=== PATIENT | female | born 1945 | race Caucasian/White ===

== ENCOUNTER → 2016-08-29 | Outpatient (REF) | payer BC ==
[2016-08-29 11:45] LABS: BASO # 0.1 K/mm3 (0.0-0.2); BASO % 0.6 % (0.0-1.0); EOS # 0.4 K/mm3 (0.0-0.50); EOS % 4.5 % (0.0-3.0); LARGE UNSTAINED CELL # 0.2 K/mm3 (0.0-0.4); LYMPH # 2.3 K/mm3 (1.5-4.5); LYMPH % 25.5 % (24.0-44.0); MEAN CORPUSCULAR HEMOGLOBIN 30.9 pg (27.0-33.0); MEAN CORPUSCULAR HGB CONC 33.2 g/dl (32.0-36.5); MEAN CORPUSCULAR VOLUME 93.1 fl (80.0-96.0); MONO # 0.5 K/mm3 (0.0-0.8); MONO % 5.4 % (0.0-5.0); NEUTROPHILS # 5.5 K/mm3 (1.8-7.7); NEUTROPHILS % 61.9 % (36.0-66.0); PLATELET COUNT, AUTOMATED 268 k/mm3 (150-450); RED CELL DISTRIBUTION WIDTH 12.3 % (11.5-14.5); WHITE BLOOD COUNT 8.8 K/mm3 (4.0-10.0)
[2016-08-29 12:22] LABS: ALBUMIN 4.3 GM/DL (3.2-5.2); ALBUMIN/GLOBULIN RATIO 1.54 (1.00-1.93); ALKALINE PHOSPHATASE 64 U/L (45-117); ALT/SGPT 46 U/L (12-78); ANION GAP 10 MEQ/L (8-16); AST/SGOT 25 U/L (15-37); BILIRUBIN,TOTAL 0.7 MG/DL (0.2-1.0); BLOOD UREA NITROGEN 15 MG/DL (7-18); CALCIUM LEVEL 9.4 MG/DL (8.8-10.2); CARBON DIOXIDE LEVEL 29 MEQ/L (21-32); CHLORIDE LEVEL 105 MEQ/L (98-107); CHOLESTEROL LEVEL 162 MG/DL (<200); CREATININE FOR GFR 0.83 MG/DL (0.55-1.02); FREE T4 0.94 NG/DL (0.76-1.46); GLOMERULAR FILTRATION RATE > 60.0 (>45); GLUCOSE, FASTING 161 MG/DL (80-110); POTASSIUM SERUM 4.3 MEQ/L (3.5-5.1); SODIUM LEVEL 144 MEQ/L (136-145); TOTAL PROTEIN 7.1 GM/DL (6.4-8.2); TRIGLYCERIDES LEVEL 138 MG/DL (<150)
== END | disposition home or self-care (01) ==
LOC: M SFHCPLAZ 07:56
PROVIDERS: ATTEND Family Medicine
DX: E78.2 Mixed hyperlipidemia (principal); E11.9 Type 2 diabetes mellitus without complications; E55.9 Vitamin D deficiency, unspecified

== ENCOUNTER → 2017-02-03 | Outpatient (REF) | payer BC ==
[2017-02-03 11:33] LABS: CHOLESTEROL LEVEL 148 MG/DL (<200); TRIGLYCERIDES LEVEL 124 MG/DL (<150)
== END ==
LOC: M SFHCPLAZ 07:59
PROVIDERS: ATTEND Family Medicine
DX: E78.2 Mixed hyperlipidemia (principal); E11.9 Type 2 diabetes mellitus without complications

== ENCOUNTER → 2017-06-10 | Outpatient (CLI) | payer BC ==
--- NOTE | 2017-06-10 14:23 | REP ---
BILATERAL MAMMOGRAM: Family history of breast cancer in maternal aunt. MLO and CC views of both breasts are performed and compared to the prior study of 04/29/2016 as well as other prior exams. Mild scattered fibroglandular tissue is unchanged. However, there do appear to be new tiny calcifications in the lower inner right breast near the nipple. Recommend magnification views to further evaluate. IMPRESSION: BI-RADS/ACR category 0 mammogram, incomplete. Additional imaging and/or prior mammograms for comparison. There appear to be increasing tiny clustered microcalcifications in the lower inner right breast near the nipple. Recommend magnification views to further evaluate. ACR 0 incomplete. This mammogram was interpreted with the aid of an FDA-approved computer-aided detection system. A. Negative x-ray reports should not delay biopsy if a dominant or clinically suspicious mass is present. B. Four to eight percent of cancers are not identified by x-ray. C. Adenosis and dense breasts may obscure an underlying neoplasm. The patient states that she/he has not had a clinical breast exam in over a year. The patient letter being requested is M0. Signed by Virgilio Murphy MD 06/11/2017 04:26 P
== END ==
LOC: M WHC 12:53
PROVIDERS: ATTEND Family Medicine
DX: Z12.31 Encounter for screening mammogram for malignant neoplasm of breast (principal)

== ENCOUNTER → 2017-06-15 | Outpatient (REF) | payer BC ==
[2017-06-15 12:27] LABS: BASO # 0.1 10^3/uL (0.0-0.2); BASO % 0.7 % (0.0-1.0); EOS # 0.3 10^3/uL (0.0-0.50); IMMATURE GRANULOCYTE % 0.2 % (0-0); LYMPH # 2.2 10^3/uL (1.5-4.5); LYMPH % 27.3 % (24.0-44.0); MEAN CORPUSCULAR HEMOGLOBIN 31.1 pg (27.0-33.0); MEAN CORPUSCULAR HGB CONC 33.6 g/dl (32.0-36.5); MEAN CORPUSCULAR VOLUME 92.5 fl (80.0-96.0); MONO # 0.5 10^3/uL (0.0-0.8); MONO % 6.7 % (0.0-5.0); NEUTROPHILS # 4.9 10^3/uL (1.8-7.7); NEUTROPHILS % 61.1 % (36.0-66.0); PLATELET COUNT, AUTOMATED 289 10^3/uL (150-450); RED CELL DISTRIBUTION WIDTH 12.2 % (11.5-14.5)
[2017-06-15 13:16] LABS: ALBUMIN 4.2 GM/DL (3.2-5.2); ALKALINE PHOSPHATASE 67 U/L (45-117); ALT/SGPT 47 U/L (12-78); ANION GAP 7 MEQ/L (8-16); AST/SGOT 23 U/L (7-37); BILIRUBIN,TOTAL 0.4 MG/DL (0.2-1.0); BLOOD UREA NITROGEN 13 MG/DL (7-18); CALCIUM LEVEL 9.4 MG/DL (8.8-10.2); CARBON DIOXIDE LEVEL 30 MEQ/L (21-32); CHLORIDE LEVEL 104 MEQ/L (98-107); CREATININE FOR GFR 0.75 MG/DL (0.55-1.02); FREE T4 0.98 NG/DL (0.76-1.46); GLOMERULAR FILTRATION RATE > 60.0 (>39); GLUCOSE, FASTING 140 MG/DL (83-110); POTASSIUM SERUM 4.7 MEQ/L (3.5-5.1); SODIUM LEVEL 141 MEQ/L (136-145)
== END ==
LOC: M SFHCPLAZ 08:22
PROVIDERS: ATTEND Family Medicine
DX: E55.9 Vitamin D deficiency, unspecified (principal); I10 Essential (primary) hypertension; E78.2 Mixed hyperlipidemia; E11.9 Type 2 diabetes mellitus without complications

== ENCOUNTER → 2017-06-23 | Outpatient (CLI) | payer BC ==
--- NOTE | 2017-06-23 13:09 | REP ---
Digital diagnostic unilateral right breast mammography with CAD: History: Screening mammography from June 10, 2017 was BIRADS category 0 due to a grouping of microcalcifications in the lower inner quadrant near the nipple right breast. Diagnostic imaging was recommended. Comparison is also made with prior mammography from July 02, 2015 and April 29, 2016. Mammographic findings: Magnified focal spot compression CC, ML, and MLO views of the right breast are obtained. These confirm the presence of a grouping of coarse heterogeneous microcalcifications in the subareolar zone inferior and medial quadrant right breast. These occupy an area spanning only 3 mm. They are increasing in number. There are scattered non-grouped calcifications elsewhere. No spiculation or soft tissue density is seen. No worrisome skin change is appreciated. Impression: BIRADS category 4 suspicious right breast imaging. Tight grouping of coarse heterogeneous microcalcifications in the subareolar zone right breast inferiorly and medially. Recommend stereotactic needle biopsy. BI-RADS/ACR category 4 mammogram. Suspicious abnormality - biopsy should be considered. Usually requires biopsy. This mammogram was interpreted with the aid of an FDA-approved computer-aided detection system. The patient states that she has not had a clinical breast exam in over a year. The patient letter being requested is m4. Signed by Marcellus Birch MD 06/23/2017 04:16 P
== END ==
LOC: M RAD 11:52
PROVIDERS: ATTEND Family Medicine
DX: R92.1 Mammographic calcification found on diagnostic imaging of breast (principal)

== ENCOUNTER → 2017-07-13 | Outpatient (CLI) | payer BC ==
[~2017-07-13] MED LIST: LIDOCAINE 1% MDV 20ML VIAL As Ordered
== END ==
LOC: M RADPRO 09:15
DX: N63.10 Unspecified lump in the right breast, unspecified quadrant (principal); Z88.7 Allergy status to serum and vaccine; Z88.0 Allergy status to penicillin; Z91.048 Other nonmedicinal substance allergy status; Z79.82 Long term (current) use of aspirin; Z79.899 Other long term (current) drug therapy
CPT/HCPCS: 19081

== ENCOUNTER → 2017-11-09 | Outpatient (CLI) | payer BC | LOC: M WHC 08:22 | DX: D36.9 Benign neoplasm, unspecified site (principal) | CPT/HCPCS: 76641 ==

== ENCOUNTER → 2017-11-20 | Outpatient (REF) | payer BC ==
[2017-11-20 09:57] LABS: APPEARANCE, URINE CLEAR (CLEAR); BACTERIA, URINE AUTO NEGATIVE (NEGATIVE); BILIRUBIN, URINE AUTO NEGATIVE (NEGATIVE); BLOOD, URINE BLOOD NEGATIVE (NEGATIVE); COLOR, URINE YELLOW (YELLOW); GLUCOSE, URINE (UA) AUTO NEGATIVE (NEGATIVE); KETONE, URINE AUTO NEGATIVE (NEGATIVE); LEUKOCYTE ESTERASE, URINE AUTO 1+ (NEGATIVE); NITRITE, URINE AUTO NEGATIVE (NEGATIVE); PROTEIN, URINE AUTO NEGATIVE (NEGATIVE); RBC, URINE AUTO 1 /HPF (0-3); SPECIFIC GRAVITY URINE AUTO 1.012 (1.002-1.035); SQUAMOUS EPITHELIAL CELL UR AU 1 /HPF (0-6); UROBILINOGEN, URINE AUTO 0.2 mg/dL (0.0-2.0); WBC, URINE AUTO 25 /HPF (0-3)
[2017-11-20 10:12] LABS: C REACTIVE PROTEIN QUANTITATIV < 0.30 MG/DL (0.00-0.30); CHOLESTEROL LEVEL 150 MG/DL (<200); CPK CREATINE PHOSPHOKINASE 164 U/L (26-192); HDL CHOLESTEROL 30 MG/DL (>40); NON-HDL-C 120 MG/DL; TRIGLYCERIDES LEVEL 185 MG/DL (<150)
[2017-11-20 10:15] LABS: ESTIMATED AVERAGE GLUCOSE 143 MG/DL (60-110); HEMOGLOBIN A1c 6.6 %
[2017-11-20 10:24] LABS: CREATININE, URINE 83.7 MG/DL; MALB URINE SIEMENS 36.2 MG/L; MAU/CREAT RATIO 43.2 MCG/MG (0.0-30.0)
[2017-11-20 11:53] LABS: VITAMIN B12 LEVEL 754 PG/ML (247-911)
== END ==
LOC: M SFHCPLAZ 08:01
DX: E11.9 Type 2 diabetes mellitus without complications (principal)
CPT/HCPCS: 82550

== ENCOUNTER → 2018-04-29 | Outpatient (REF) | payer BC ==
[2018-04-29 12:25] LABS: APPEARANCE, URINE CLEAR (CLEAR); BACTERIA, URINE AUTO NEGATIVE (NEGATIVE); BILIRUBIN, URINE AUTO NEGATIVE (NEGATIVE); BLOOD, URINE BLOOD NEGATIVE (NEGATIVE); COLOR, URINE YELLOW (YELLOW); GLUCOSE, URINE (UA) AUTO NEGATIVE (NEGATIVE); KETONE, URINE AUTO NEGATIVE (NEGATIVE); LEUKOCYTE ESTERASE, URINE AUTO TRACE (NEGATIVE); MUCUS, URINE SMALL (NEGATIVE); NITRITE, URINE AUTO NEGATIVE (NEGATIVE); PROTEIN, URINE AUTO NEGATIVE (NEGATIVE); RBC, URINE AUTO 3 /HPF (0-3); SPECIFIC GRAVITY URINE AUTO 1.018 (1.002-1.035); SQUAMOUS EPITHELIAL CELL UR AU 1 /HPF (0-6); UROBILINOGEN, URINE AUTO 0.2 mg/dL (0.0-2.0); WBC, URINE AUTO 12 /HPF (0-3)
[2018-04-29 12:35] LABS: ALBUMIN 4.4 GM/DL (3.2-5.2); ALBUMIN/GLOBULIN RATIO 1.63 (1.00-1.93); ALKALINE PHOSPHATASE 63 U/L (45-117); ALT/SGPT 30 U/L (12-78); ANION GAP 8 MEQ/L (8-16); AST/SGOT 16 U/L (7-37); BILIRUBIN,TOTAL 0.5 MG/DL (0.2-1.0); BLOOD UREA NITROGEN 14 MG/DL (7-18); CALCIUM LEVEL 9.5 MG/DL (8.8-10.2); CARBON DIOXIDE LEVEL 30 MEQ/L (21-32); CHLORIDE LEVEL 105 MEQ/L (98-107); CREATININE FOR GFR 0.75 MG/DL (0.55-1.30); GLOMERULAR FILTRATION RATE > 60.0 (>39); GLUCOSE, FASTING 130 MG/DL (70-100); MAGNESIUM LEVEL 1.8 MG/DL (1.8-2.4); POTASSIUM SERUM 4.4 MEQ/L (3.5-5.1); SODIUM LEVEL 143 MEQ/L (136-145); TOTAL PROTEIN 7.1 GM/DL (6.4-8.2)
[2018-04-29 13:05] LABS: ESTIMATED AVERAGE GLUCOSE 131 MG/DL (60-110); HEMOGLOBIN A1c 6.2 %
[2018-04-29 22:44] LABS: MALB URINE SIEMENS 79.2 MG/L
[2018-04-29 22:58] LABS: MAU/CREAT RATIO 52.8 MCG/MG (0.0-30.0)
== END ==
LOC: M SFHCPLAZ 07:57
DX: D36.9 Benign neoplasm, unspecified site (principal); I10 Essential (primary) hypertension; E11.9 Type 2 diabetes mellitus without complications

== ENCOUNTER → 2018-06-07 | Outpatient (CLI) | payer BC | LOC: M WHC 11:32 | DX: Z12.31 Encounter for screening mammogram for malignant neoplasm of breast (principal); Z85.3 Personal history of malignant neoplasm of breast | CPT/HCPCS: 77067 ==

== ENCOUNTER → 2018-09-23 | Outpatient (REF) | payer BC ==
[2018-09-23 10:27] LABS: BASO % 0.5 % (0.0-1.0); EOS # 0.2 10^3/uL (0.0-0.50); EOS % 3.2 % (0.0-3.0); HEMATOCRIT 41.9 % (36.0-47.0); HEMOGLOBIN 14.2 g/dl (12.0-15.5); LYMPH # 1.7 10^3/uL (1.5-4.5); LYMPH % 21.9 % (24.0-44.0); MEAN CORPUSCULAR HEMOGLOBIN 30.7 pg (27.0-33.0); MEAN CORPUSCULAR HGB CONC 33.9 g/dl (32.0-36.5); MEAN CORPUSCULAR VOLUME 90.5 fl (80.0-96.0); MONO # 0.5 10^3/uL (0.0-0.8); MONO % 6.9 % (0.0-5.0); NEUTROPHILS # 5.1 10^3/uL (1.8-7.7); NEUTROPHILS % 67.2 % (36.0-66.0); PLATELET COUNT, AUTOMATED 248 10^3/uL (150-450); RED BLOOD COUNT 4.63 10^6/uL (4.00-5.40); WHITE BLOOD COUNT 7.6 10^3/uL (4.0-10.0)
[2018-09-23 10:53] LABS: ALBUMIN 4.3 GM/DL (3.2-5.2); ALT/SGPT 48 U/L (12-78); BILIRUBIN,TOTAL 0.4 MG/DL (0.2-1.0); BLOOD UREA NITROGEN 16 MG/DL (7-18); CALCIUM LEVEL 9.7 MG/DL (8.8-10.2); CARBON DIOXIDE LEVEL 27 MEQ/L (21-32); CHLORIDE LEVEL 104 MEQ/L (98-107); GLOMERULAR FILTRATION RATE > 60.0 (>39); GLUCOSE, FASTING 146 MG/DL (70-100); POTASSIUM SERUM 4.6 MEQ/L (3.5-5.1); SODIUM LEVEL 140 MEQ/L (136-145); TOTAL PROTEIN 7.1 GM/DL (6.4-8.2)
[2018-09-23 11:00] LABS: PTH INTACT 25.3 PG/ML (18.5-88.0); TOTAL 25(OH) VITAMIN D 30.9 NG/ML (30.0-100.0); VITAMIN B12 LEVEL 906 PG/ML (247-911)
[2018-09-23 11:05] LABS: HEMOGLOBIN A1c 6.8 %
== END ==
LOC: M SFHCPLAZ 08:39
PROVIDERS: ATTEND Family Medicine
DX: I10 Essential (primary) hypertension (principal); E78.2 Mixed hyperlipidemia; E11.9 Type 2 diabetes mellitus without complications; E55.9 Vitamin D deficiency, unspecified

== ENCOUNTER → 2018-11-03 | Outpatient (REF) | payer BC ==
[~2018-11-03] MED LIST changes: +24hr Holter XX; +ASPI81TA85 PO; +ATEN50TA2 PO; +ENAL20TA PO; -LIDOCAINE 1% MDV 20ML VIAL As Ordered; +METF-723 PO; +PROT1TAB2 PO; +ROSU5TAB4 PO; +SLOWTAB2 PO
[2018-11-03 13:29] LABS: APPEARANCE, URINE HAZY (CLEAR); BACTERIA, URINE AUTO 1+ (NEGATIVE); BILIRUBIN, URINE AUTO NEGATIVE (NEGATIVE); BLOOD, URINE BLOOD NEGATIVE (NEGATIVE); COLOR, URINE YELLOW (YELLOW); GLUCOSE, URINE (UA) AUTO NEGATIVE (NEGATIVE); KETONE, URINE AUTO NEGATIVE (NEGATIVE); LEUKOCYTE ESTERASE, URINE AUTO 3+ (NEGATIVE); MUCUS, URINE SMALL (NEGATIVE); NITRITE, URINE AUTO NEGATIVE (NEGATIVE); PROTEIN, URINE AUTO NEGATIVE (NEGATIVE); RBC, URINE AUTO 5 /HPF (0-3); SPECIFIC GRAVITY URINE AUTO 1.013 (1.002-1.035); SQUAMOUS EPITHELIAL CELL UR AU 3 /HPF (0-6); UROBILINOGEN, URINE AUTO 0.2 mg/dL (0.0-2.0); WBC, URINE AUTO 68 /HPF (0-3)
[2018-11-03 13:39] LABS: ALBUMIN 3.9 GM/DL (3.2-5.2); ALT/SGPT 35 U/L (12-78); BILIRUBIN,TOTAL 0.4 MG/DL (0.2-1.0); BLOOD UREA NITROGEN 10 MG/DL (7-18); CALCIUM LEVEL 8.9 MG/DL (8.8-10.2); CARBON DIOXIDE LEVEL 27 MEQ/L (21-32); CHLORIDE LEVEL 107 MEQ/L (98-107); CHOLESTEROL LEVEL 162 MG/DL (<200); CREATININE FOR GFR 0.72 MG/DL (0.55-1.30); FREE T4 0.94 NG/DL (0.76-1.46); GLOMERULAR FILTRATION RATE > 60.0 (>39); GLUCOSE, FASTING 123 MG/DL (70-100); HDL CHOLESTEROL 36 MG/DL (>40); LDL CHOLESTEROL 98 MG/DL (<100); NON-HDL-C 126 MG/DL; POTASSIUM SERUM 4.5 MEQ/L (3.5-5.1); SODIUM LEVEL 142 MEQ/L (136-145); TOTAL PROTEIN 6.3 GM/DL (6.4-8.2); TRIGLYCERIDES LEVEL 139 MG/DL (<150)
[2018-11-03 14:01] LABS: MALB URINE SIEMENS 60.2 MG/L; MAU/CREAT RATIO 50.5 MCG/MG (0.0-30.0)
[2018-11-03 14:23] LABS: HEMOGLOBIN A1c 6.5 %
== END ==
LOC: M SFHCPLAZ 10:54
PROVIDERS: ATTEND Physician Assistant Medical
DX: I10 Essential (primary) hypertension (principal); E78.2 Mixed hyperlipidemia; E11.9 Type 2 diabetes mellitus without complications

== ENCOUNTER → 2018-11-04 | Outpatient (REF) | payer BC | LOC: M SFHCPLAZ 14:16 | PROVIDERS: ATTEND Physician Assistant Medical | DX: R82.90 Unspecified abnormal findings in urine (principal) ==

== ENCOUNTER → 2019-03-04 | Outpatient (REF) | payer BC ==
[~2019-03-04] MED LIST changes: -ROSU5TAB4 PO; +ROSU5TAB5 PO
[2019-03-04 10:05] LABS: BASO # 0.1 10^3/uL (0.0-0.2); BASO % 0.6 % (0.0-1.0); EOS # 0.5 10^3/uL (0.0-0.50); EOS % 4.9 % (0.0-3.0); HEMATOCRIT 40.4 % (36.0-47.0); HEMOGLOBIN 13.6 g/dl (12.0-15.5); LYMPH # 2.2 10^3/uL (1.5-4.5); LYMPH % 23.5 % (24.0-44.0); MEAN CORPUSCULAR HEMOGLOBIN 30.8 pg (27.0-33.0); MEAN CORPUSCULAR HGB CONC 33.7 g/dl (32.0-36.5); MEAN CORPUSCULAR VOLUME 91.4 fl (80.0-96.0); MONO # 0.7 10^3/uL (0.0-0.8); MONO % 7.3 % (0.0-5.0); NEUTROPHILS # 5.9 10^3/uL (1.8-7.7); NEUTROPHILS % 63.3 % (36.0-66.0); PLATELET COUNT, AUTOMATED 263 10^3/uL (150-450); RED BLOOD COUNT 4.42 10^6/uL (4.00-5.40); WHITE BLOOD COUNT 9.3 10^3/uL (4.0-10.0)
[2019-03-04 10:06] LABS: APPEARANCE, URINE CLEAR (CLEAR); BACTERIA, URINE AUTO NEGATIVE (NEGATIVE); BILIRUBIN, URINE AUTO NEGATIVE (NEGATIVE); BLOOD, URINE BLOOD NEGATIVE (NEGATIVE); COLOR, URINE YELLOW (YELLOW); GLUCOSE, URINE (UA) AUTO NEGATIVE (NEGATIVE); KETONE, URINE AUTO NEGATIVE (NEGATIVE); LEUKOCYTE ESTERASE, URINE AUTO TRACE (NEGATIVE); NITRITE, URINE AUTO NEGATIVE (NEGATIVE); PROTEIN, URINE AUTO NEGATIVE (NEGATIVE); RBC, URINE AUTO 4 /HPF (0-3); SPECIFIC GRAVITY URINE AUTO 1.019 (1.002-1.035); SQUAMOUS EPITHELIAL CELL UR AU 0 /HPF (0-6); UROBILINOGEN, URINE AUTO 0.2 mg/dL (0.0-2.0); WBC, URINE AUTO 10 /HPF (0-3)
[2019-03-04 10:27] LABS: HEMOGLOBIN A1c 7.2 %
[2019-03-04 10:34] LABS: ALBUMIN 4.2 GM/DL (3.2-5.2); ALT/SGPT 43 U/L (12-78); BILIRUBIN,TOTAL 0.4 MG/DL (0.2-1.0); BLOOD UREA NITROGEN 16 MG/DL (7-18); CARBON DIOXIDE LEVEL 27 MEQ/L (21-32); CHLORIDE LEVEL 106 MEQ/L (98-107); CREATININE FOR GFR 0.85 MG/DL (0.55-1.30); GLOMERULAR FILTRATION RATE > 60.0 (>39); GLUCOSE, FASTING 157 MG/DL (70-100); POTASSIUM SERUM 4.5 MEQ/L (3.5-5.1); SODIUM LEVEL 142 MEQ/L (136-145); TOTAL PROTEIN 6.9 GM/DL (6.4-8.2)
[2019-03-04 10:43] LABS: MALB URINE SIEMENS 21.9 MG/L; MAU/CREAT RATIO 13.6 MCG/MG (0.0-30.0)
== END ==
LOC: M SFHCPLAZ 08:27
PROVIDERS: ATTEND Family Medicine
DX: E11.9 Type 2 diabetes mellitus without complications (principal); E78.2 Mixed hyperlipidemia; I10 Essential (primary) hypertension

== ENCOUNTER → 2019-07-29 | Outpatient (CLI) | payer BC ==
--- NOTE | 2019-07-29 14:52 | REPMRS ---
Patient History The patient states she has not had a clinical breast exam in over a year. Family history of breast cancer at age 50 or over in maternal aunt, colorectal cancer at age 50 or over in brother. Benign radio exam breast specimen of the right breast, July 13, 2017. Benign stereotatic loc for ea lesion of the right breast, July 13, 2017. Benign excisional biopsy of the right breast, 1974. Digital Woman Screen Mammo: July 29, 2019 - Exam #: [id number] Bilateral CC and MLO view(s) were taken. Technologist: Destiny Adames, Technologist Prior study comparison: June 07, 2018, bilateral digital woman screen mammo performed at [facility]. June 23, 2017, right breast digital mammo diagnostic unilateral performed at [facility]. April 29, 2016, digital woman screen mammo performed at [facility]. FINDINGS: There are scattered fibroglandular densities. There has been no change in the appearance of the mammogram from the prior studies. There is a mild amount of scattered fibroglandular density which is fairly symmetric. There is no interval development of dominant mass, architectural distortion, or grouped microcalcification suggestive of malignancy. 3-D tomosynthesis shows no additional findings. Assessment: BI-RADS/ACR category 2 mammogram. Benign Findings. Recommendation Routine screening mammogram of both breasts in 1 year (for women over age 40). This patient's Lifetime Breast Cancer Risk is estimated at 4.9 %. This mammogram was interpreted with the aid of an FDA-approved computer-aided dectection system. Electronically Signed By: Marvin Birch MD 07/29/19 1759
== END ==
LOC: M WHC 12:53
PROVIDERS: ATTEND Family Medicine
DX: Z12.31 Encounter for screening mammogram for malignant neoplasm of breast (principal)

== ENCOUNTER → 2019-08-08 | Outpatient (CLI) | payer BC ==
[2019-08-08 10:47] LABS: HEMOGLOBIN A1c 6.9 %
[2019-08-08 11:03] LABS: ALBUMIN 4.2 GM/DL (3.2-5.2); ALT/SGPT 42 U/L (12-78); BILIRUBIN,TOTAL 0.4 MG/DL (0.2-1.0); BLOOD UREA NITROGEN 14 MG/DL (7-18); C REACTIVE PROTEIN QUANTITATIV < 0.30 MG/DL (0.00-0.30); CALCIUM LEVEL 10.3 MG/DL (8.8-10.2); CARBON DIOXIDE LEVEL 28 MEQ/L (21-32); CHLORIDE LEVEL 105 MEQ/L (98-107); CHOLESTEROL LEVEL 136 MG/DL (<200); CHOLESTEROL RISK RATIO 4.689 (<5); CPK CREATINE PHOSPHOKINASE 136 U/L (26-192); CREATININE FOR GFR 0.88 MG/DL (0.55-1.30); GLOMERULAR FILTRATION RATE > 60.0 (>39); GLUCOSE, FASTING 132 MG/DL (70-100); HDL CHOLESTEROL 29 MG/DL (>40); LDL CHOLESTEROL 61 MG/DL (<100); NON-HDL-C 107 MG/DL; POTASSIUM SERUM 5.3 MEQ/L (3.5-5.1); SODIUM LEVEL 140 MEQ/L (136-145); TOTAL PROTEIN 7.1 GM/DL (6.4-8.2); TRIGLYCERIDES LEVEL 230 MG/DL (<150)
== END ==
LOC: M PLALAB 08:24
PROVIDERS: ATTEND Family Medicine
DX: E11.9 Type 2 diabetes mellitus without complications (principal)

== ENCOUNTER → 2019-09-16 | Outpatient (CLI) | payer BC ==
[~2019-09-16] MED LIST changes: +E-Z-GAS II EFFERVESCENT PACKET (SODIUM BICARB./CITRIC ACID/SIMETHICONE) As Ordered ONE; +E-Z-HD 98% w/w 340GM SUSP BTL As Ordered ONE; +E-Z-PAQUE 96% w/w SUSP 176GM BTL As Ordered ONE
--- NOTE | 2019-09-16 17:10 | REP ---
Examination Requested: Upper G.I. Series With KUB Reason For Exam: Gastroesophageal reflux disease Upper GI Air Contrast The procedure was performed by ADI Wallace, under the direct supervision of Dr. Birch. The images were reviewed with Dr. Birch. The scout executive film shows no organomegaly or pathological masses. The intestinal gas pattern appears normal. There are surgical clips in the right upper quadrant. 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 Liquid barium and gas producing crystals were given in the erect position as well as liquid barium in the prone oblique position in order to perform a double contrast upper GI examination. The oral and pharyngeal stages of deglutition were unremarkable. Esophageal transport is efficient and there is no esophagitis, stricture, or mucosal ring noted. However tertiary contractions were noted throughout the exam. There there is a moderate size hiatal hernia. Gastroesophageal reflux was not visualized throughout the course of the exam. The stomach serrano are normally outlined. The rugal folds are smooth and regular. There is no gastritis, neoplasm, ulcer disease noted. The duodenal serrano are normally outlined. The mucosal folds are smooth and regular. There is no duodenitis, peptic ulcer disease, or neoplasm noted. The visualized portion of the proximal small bowel appears normal in course and caliber. Impression: 1. Tertiary contractions noted throughout the exam. 2. Moderate size hiatal hernia. 0.6 minutes of fluoroscopy time was utilized for this procedure. Some fluoroscopic images are performed with last image hold technology. These images require no additional radiation. Reviewed by ADI Napoles 09/16/2019 03:46 P Electronically Signed by Marcellus Birch MD 09/16/2019 05:01 P
== END ==
LOC: M RAD 07:58
PROVIDERS: ATTEND Family Medicine
DX: K21.9 Gastro-esophageal reflux disease without esophagitis (principal)

== ENCOUNTER → 2019-12-21 | Outpatient (REF) | payer BC ==
[~2019-12-21] MED LIST changes: -E-Z-GAS II EFFERVESCENT PACKET (SODIUM BICARB./CITRIC ACID/SIMETHICONE) As Ordered ONE; -E-Z-HD 98% w/w 340GM SUSP BTL As Ordered ONE; -E-Z-PAQUE 96% w/w SUSP 176GM BTL As Ordered ONE
[2019-12-21 10:40] LABS: BASO # 0.1 10^3/uL (0.0-0.2); BASO % 0.6 % (0.0-1.0); EOS # 0.4 10^3/uL (0.0-0.5); EOS % 4.6 % (0.0-3.0); HEMATOCRIT 40.6 % (36.0-47.0); HEMOGLOBIN 13.5 g/dl (12.0-15.5); LYMPH % 25.2 % (24.0-44.0); MEAN CORPUSCULAR HEMOGLOBIN 30.5 pg (27.0-33.0); MEAN CORPUSCULAR HGB CONC 33.3 g/dl (32.0-36.5); MEAN CORPUSCULAR VOLUME 91.9 fl (80.0-96.0); MONO # 0.7 10^3/uL (0.0-0.8); MONO % 8.7 % (0.0-5.0); NEUTROPHILS # 4.9 10^3/uL (1.5-8.5); NEUTROPHILS % 60.4 % (36.0-66.0); PLATELET COUNT, AUTOMATED 257 10^3/uL (150-450); RED BLOOD COUNT 4.42 10^6/uL (4.00-5.40); WHITE BLOOD COUNT 8.1 10^3/uL (4.0-10.0)
[2019-12-21 11:07] LABS: HEMOGLOBIN A1c 7.7 %
[2019-12-21 11:09] LABS: ALBUMIN 4.2 GM/DL (3.2-5.2); ALT/SGPT 63 U/L (12-78); BILIRUBIN,TOTAL 0.5 MG/DL (0.2-1.0); BLOOD UREA NITROGEN 11 MG/DL (7-18); CALCIUM LEVEL 9.1 MG/DL (8.8-10.2); CARBON DIOXIDE LEVEL 29 MEQ/L (21-32); CHLORIDE LEVEL 106 MEQ/L (98-107); CREATININE FOR GFR 0.82 MG/DL (0.55-1.30); GLOMERULAR FILTRATION RATE > 60.0 (>39); GLUCOSE, FASTING 177 MG/DL (70-100); MAGNESIUM LEVEL 1.7 MG/DL (1.8-2.4); POTASSIUM SERUM 4.7 MEQ/L (3.5-5.1); SODIUM LEVEL 139 MEQ/L (136-145); TOTAL 25(OH) VITAMIN D 44.7 NG/ML (30.0-100.0)
== END ==
LOC: M PLALAB 08:18
PROVIDERS: ATTEND Family Medicine
DX: E55.9 Vitamin D deficiency, unspecified (principal); I10 Essential (primary) hypertension; E11.9 Type 2 diabetes mellitus without complications

== ENCOUNTER → 2020-06-12 | Outpatient (REF) | payer BC ==
[~2020-06-12] MED LIST changes: -ASPI81TA85 PO; +ASPI81TA86 PO; -ENAL20TA PO; +ENAL20TA11 PO
[2020-06-12 11:17] LABS: APPEARANCE, URINE CLEAR (CLEAR); BACTERIA, URINE AUTO NEGATIVE (NEGATIVE); BILIRUBIN, URINE AUTO NEGATIVE (NEGATIVE); BLOOD, URINE BLOOD NEGATIVE (NEGATIVE); COLOR, URINE YELLOW (YELLOW); GLUCOSE, URINE (UA) AUTO NEGATIVE (NEGATIVE); KETONE, URINE AUTO NEGATIVE (NEGATIVE); LEUKOCYTE ESTERASE, URINE AUTO 1+ (NEGATIVE); MUCUS, URINE SMALL (NEGATIVE); NITRITE, URINE AUTO NEGATIVE (NEGATIVE); PROTEIN, URINE AUTO NEGATIVE (NEGATIVE); RBC, URINE AUTO 0 /HPF (0-3); SPECIFIC GRAVITY URINE AUTO 1.021 (1.002-1.035); SQUAMOUS EPITHELIAL CELL UR AU 0 /HPF (0-6); UROBILINOGEN, URINE AUTO 0.2 mg/dL (0.0-2.0); WBC, URINE AUTO 11 /HPF (0-3)
[2020-06-12 11:54] LABS: HEMOGLOBIN A1c 6.3 %
[2020-06-12 12:28] LABS: C REACTIVE PROTEIN QUANTITATIV < 0.30 MG/DL (0.00-0.30); CHOLESTEROL LEVEL 137 MG/DL (<200); CHOLESTEROL RISK RATIO 4.029 (<5); FREE T4 0.97 NG/DL (0.76-1.46); HDL CHOLESTEROL 34 MG/DL (>40); LDL CHOLESTEROL 69 MG/DL (<100); MALB URINE SIEMENS 56.6 MG/L; MAU/CREAT RATIO 41.6 MCG/MG (0.0-30.0); NON-HDL-C 103 MG/DL; TRIGLYCERIDES LEVEL 170 MG/DL (<150)
== END ==
LOC: M PLALAB 09:02
PROVIDERS: ATTEND Family Medicine
DX: E11.9 Type 2 diabetes mellitus without complications (principal)

== ENCOUNTER → 2020-07-30 | Outpatient (CLI) | payer BC ==
--- NOTE | 2020-07-30 15:00 | REPMRS ---
Patient History The patient states she has not had a clinical breast exam in over a year. Patient is postmenopausal. Family history of breast cancer at age 50 or over in maternal aunt, colorectal cancer at age 50 or over in brother. Benign radio exam breast specimen of the right breast, July 13, 2017. Benign stereotatic loc for ea lesion of the right breast, July 13, 2017. Benign excisional biopsy of the right breast, 1973. No Hormone Replacement Therapy 3D TOMOSYNTHESIS WAS PERFORMED. [facility] lifetime risk for breast cancer is 4.6%. Volpara breast density b. Digital Woman Screen Mammo: July 30, 2020 - Exam #: [id number] Bilateral CC and MLO view(s) were taken. Technologist: Jessica Leal, Technologist Prior study comparison: July 29, 2019, bilateral digital woman screen mammo performed at [facility]. June 07, 2018, bilateral digital woman screen mammo performed at [facility]. FINDINGS: There are scattered fibroglandular densities. There has been no change in the appearance of the mammogram from the prior studies. There is a mild amount of residual fibroglandular tissue which is fairly symmetric. There is no interval development of dominant mass, architectural distortion, or clustered microcalcification suggestive of malignancy. Assessment: BI-RADS/ACR category 1 mammogram. Negative Mammogram. Recommendation Routine screening mammogram in 1 year (for women over age 40). This mammogram was interpreted with the aid of an FDA-approved computer-aided dectection system. Electronically Signed By: Virgilio Murphy MD 07/30/20 1500
== END ==
LOC: M WHC 14:19
PROVIDERS: ATTEND Family Medicine
DX: Z12.31 Encounter for screening mammogram for malignant neoplasm of breast (principal); Z80.0 Family history of malignant neoplasm of digestive organs; Z86.018 Personal history of other benign neoplasm

== ENCOUNTER 2020-09-06 16:19 | Emergency (ER) | payer BC ==
[~2020-09-06] VITALS: Ht 162.6 cm; Wt 76.1 kg
--- OUTSIDE RECORDS SUMMARY | 2020-09-06 16:24 | CCD ---
Author Author [facility] Organization [facility] Address Unknown Phone Unavailable Care Team Providers Care Bag Mender Name Role Phone Dominik Rodriguez Unavailable PROBLEMS Type Condition ICD9-CM Code [id number] Code Onset Dates Condition S tatus SNOMED Code Notes Problem Type 2 diabetes mellitus without complications E11 .9 Active 476582616 Problem NAFLD (nonalcoholic fatty liver disease) K76.0 Active 448465217 Problem Breast cancer screening Z12.39 Active 90440717 8 Problem Allergic rhinitis J30.9 Active 66410621 Problem Overweight E66.3 Active 137017245 Problem Colon cancer screening Z12.11 Active 540629997 Problem Mixed hyperlipidemia E78.2 Active 219169430 Problem Gastroesophageal reflux disease, esophagitis pre sence not specified K21.9 Active 545076242 Problem Essential (primary) hypertension I10 Active 28129917 Problem Vitamin D deficiency E55.9 Active 33886034 Problem Psoriasis L40.9 Active 1794426 Problem Alopecia L65.9 Active 40657147 Problem 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 Active 71292464 ALLERGIES Allergen (clinical drug ingredient) Drug/Non Drug Allergy do cumented on EMR Reaction Allergy Type Onset Date Status Tape Hives Non Drug Allergy Active Influenza Vaccine Swelling, Hives, Non Drug Allergy Active amoxicillin Amoxicillin([facility] Code:[address]-74) Hives Drug Aller gy Active ENCOUNTERS from 1945 to 2020-08-01 Encounter Location Date Provider Diagnosis [address] [address] Jul, 021 Dominik Rodriguez IMMUNIZATIONS Vaccine Route Administration Date Status TDAP IM Intramuscular Sep 04, 2016 Administered Pneumococcal 0.5mL (Prevnar 13) IM Intramuscular Jul 24, 2017 Administered SOCIAL HISTORY Tobacco Use: Social History Observation Description Date Details (start date - stop date) Never Smoker Sex Assigned At : Social History Observation Description Sex Assigned At Unknown Language: Question Answer Notes Languages spoken: Hungarian Spiritism: Question Answer Notes Spiritism No methodist beliefs that would impact health care. Sexual Hx: Question Answer Notes Had sex in the last 12 months (vaginal, oral, or anal)? No Have you ever had an STD? No Alcohol Screening: Question Answer Notes Did you have a drink containing alcohol in the past year? Ye s Points 1 Interpretation Negative How often did you have six or more drinks on one occas ion in the past year? Never (0 points) How many drinks did you have on a typica l day when you were drinking in the past year? 1 or 2 (0 points) How often did you have a drink containing alcohol in t he past year? Monthly or less (1 point) Tobacco Use: Question Answer Notes Are you a: never smoker REASON FOR REFERRAL No Information VITAL SIGNS No information MEDICATIONS Medication SIG (Take, Route, Frequency, Duration) Notes Start Da te End Date Status MetFORMIN HCl ER 500 MG 1 tab Orally bid for 90 day(s) Active Atenolol 50 mg 1 tablet Orally Once a day for 90 day(s) Active Aspirin 81 MG 1 tablet by mouth Once a day Active Enalapril Maleate 20 MG 2 tablets Orally every morning for 90 day(s) Active Multivitamins OTC 1 tablet by mouth Once a day Active OneTouch Ultra Test - as directed In Vitro DX E11.9 Daily for 30 day(s) Sep, Active Minoxidil 5 % 1 drop to affected area Externally Twice a day for 90 day(s) Active Clobetasol Propionate 0.05 % 1 application to affected area Externally Twice a day x 10 days with flares for 90 day(s) Active Rabeprazole Sodium 20 MG 1 tablet Orally every morning for 90 day(s) Active Calcium 600 + D 600-400 MG-UNIT 1 tablet by mouth Once a day Active Rosuvastatin Calcium 5 MG 1 tablet Orally Once a day for 90 day(s) Active Flunisolide 25 MCG/ACT (0.025%) 30 Nasally Twice a day Active Sitagliptin Phosphate 50 MG 1 tablet Orally every morning for 90 day( s) Active PROCEDURES No Information RESULTS No Results REASON FOR VISIT No Information MEDICAL (GENERAL) HISTORY Type Description Date Medical History hypertension,essential-04/01/19 RST-low ri sk, normal EF-[place] Medical History obesity Medical History scalp psoriasis Medical History hyperlipidemia 2B Medical History asthma mild intermittent-December 2006 FEV1 103% normal Medical History nonalcoholic fatty liver disease-negativ e workup April 2005 Medical History systolic murmur-patient defers TTE Medical History T2DM NID Medical History osteopenia by August 2003 BMD Medical History microscopic hematuria-only s ignificant UA June 2009-saw Dr. Petersen who deferred cystoscopy Medical History 7 cm hiatal hernia, rectus d iasthesis c small amount herniated umbilical omental fat-10/25/2014 CT A/P Medical History R breast sclerotic intraduct al papilloma by R breast FNA 07/14/17 done 2 C4 mammo Medical History R radial head ND fracture sp mechanical fall 03/2017-splinted by Castro Medical History GERD-09/16/19 UGI moderate HH s visualized EDMUND, tertiary contractions Surgical History colonoscopy-pandiverticulosi s and internal [id number]-ubbhjrlsfww-genejd-[facility] , 12/2014 Surgical History appendectomy Surgical History C/S x 3 Surgical History cholecystectomy Surgical History D&C x2 Surgical History Breast biopsy right Surgical History Urethral diverticulum surgery 1989 Surgical History Right breast biopsy-[facility]- 07/13/17 Hospitalization History surgical related Goals Section No Information Health Concerns No Information MEDICAL EQUIPMENT No Information MENTAL STATUS No Information FUNCTIONAL STATUS No Information ASSESSMENTS No Information PLAN OF TREATMENT Medication Medication Name Sig Start Date Stop Date Multivitamins OTC 1 tablet by mouth Once a day Flunisolide 25 MCG/ACT (0.025%) 30 Nasally Twice a day Enalapril Maleate 20 MG 2 tablets Orally every morning for 90 da y(s) Rosuvastatin Calcium 5 MG 1 tablet Orally Once a day for 90 day( s) Aspirin 81 MG 1 tablet by mouth Once a day Rabeprazole Sodium 20 MG 1 tablet Orally every morning for 90 da y(s) Minoxidil 5 % 1 drop to affected area Externally Twice a day f or 90 day(s) MetFORMIN HCl ER 500 MG 1 tab Orally bid for 90 day(s) Clobetasol Propionate 0.05 % 1 application to affected area Externally Twice a day x 10 days with flares for 90 day(s) Atenolol 50 mg 1 tablet Orally Once a day for 90 day(s) Calcium 600 + D 600-400 MG-UNIT 1 tablet by mouth Once a day Sitagliptin Phosphate 50 MG 1 tablet Orally every morning for 90 day(s) Next Appt Details Provider Name:Dominik Rodriguez, 2020-11-15 0 2:30:00 PM, [address] [place] [address], [id number], Insurance Providers Payer Name Payer Address Payer Phone Insured Name Patient Relati onship to Insured Coverage Start Date Coverage End Date BS [employer] [facility] [place] [address] [address] [facility] [id number] Asher Birch A
--- OUTSIDE RECORDS SUMMARY | 2020-09-06 16:24 | CCD ---
Author Author [facility] Organization [facility] Address Unknown Phone Unavailable Care Team Providers Care Driving School Instructor Name Role Phone Dominik Rodriguez Unavailable PROBLEMS Type Condition ICD9-CM Code [id number] Code Onset Dates Condition S tatus SNOMED Code Notes Problem Type 2 diabetes mellitus without complications E11 .9 Active 918309635 Problem NAFLD (nonalcoholic fatty liver disease) K76.0 Active 005671175 Problem Breast cancer screening Z12.39 Active 45594287 8 Problem Allergic rhinitis J30.9 Active 16105917 Problem Overweight E66.3 Active 189083504 Problem Colon cancer screening Z12.11 Active 216853987 Problem Mixed hyperlipidemia E78.2 Active 717774306 Problem Gastroesophageal reflux disease, esophagitis pre sence not specified K21.9 Active 383583147 Problem Essential (primary) hypertension I10 Active 91201680 Problem Vitamin D deficiency E55.9 Active 13252204 Problem Psoriasis L40.9 Active 9823501 Problem Alopecia L65.9 Active 31086626 Problem 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 Active 33512135 ALLERGIES Allergen (clinical drug ingredient) Drug/Non Drug Allergy do cumented on EMR Reaction Allergy Type Onset Date Status Tape Hives Non Drug Allergy Active Influenza Vaccine Swelling, Hives, Non Drug Allergy Active amoxicillin Amoxicillin([facility] Code:[address]-83) Hives Drug Aller gy Active ENCOUNTERS from 1945 to 2020-08-02 Encounter Location Date Provider Diagnosis [address] [address] Jul, 021 Dominik Rodriguez IMMUNIZATIONS Vaccine Route Administration Date Status TDAP IM Intramuscular Sep 04, 2016 Administered Pneumococcal 0.5mL (Prevnar 13) IM Intramuscular Jul 24, 2017 Administered SOCIAL HISTORY Tobacco Use: Social History Observation Description Date Details (start date - stop date) Never Smoker Sex Assigned At : Social History Observation Description Sex Assigned At Unknown Language: Question Answer Notes Languages spoken: Palauan Rastafari: Question Answer Notes Rastafari No quaker beliefs that would impact health care. Sexual [...] Information RESULTS No Results REASON FOR VISIT PA franckzole DR 20mg tab, QD MEDICAL (GENERAL) HISTORY Type Description Date Medical [...] contractions Surgical History colonoscopy-pandiverticulosi s and internal [id number]-gbktbg-[facility] , 12/2014 Surgical History appendectomy Surgical History C/S x 3 Surgical History cholecystectomy Surgical History D&C x2 Surgical History Breast biopsy right Surgical History Urethral diverticulum surgery 1989 Surgical History Right breast biopsy[facility] 07/13/17 Hospitalization History surgical related Goals Section [...] Provider Name:Dominik Rodriguez, 2020-11-15 0 2:30:00 PM, [address] [place], [address], Insurance Providers Payer Name Payer Address Payer Phone Insured Name Patient Relati onship to Insured Coverage Start Date Coverage End Date [facility] [address] [facility] [id number] Asher Birch A
--- OUTSIDE RECORDS SUMMARY | 2020-09-06 16:24 | CCD ---
Author Author [facility] Organization [facility] Address Unknown Phone Unavailable Support Name Relationship Address Phone RE Next Of Kin Unknown Unavailable HOMEMAKER Next Of Kin - -, - - - NON, PERPT Next Of Kin - -- -, - - - Liliana MCGOVERN Next Of Kin [address] [place] [address] TARIK [place] [address] UNEMPLOYED Next Of Kin [address] [place] [address] UE Next Of Kin Unknown Unavailable ASHER MCGOVERN Next Of Kin [address] [place] [address] [place] [address] Unavailable Re-disclosure Warning The records that you are about to access may contain information from federally-assisted alcohol or drug abuse programs. If such information is present, then the following federally mandated warning applies: This information has been disclosed to you from records protected by federal confidentiality rules (42 CFR part 2). The federal rules prohibit you from making any further disclosure of this information unless further disclosure is expressly permitted by the written consent of the person to whom it pertains or as otherwise permitted by 42 CFR part 2. A general authorization for the release of medical or other information is NOT sufficient for this purpose. The Federal rules restrict any use of the information to criminally investigate or prosecute any alcohol or drug abuse patient.The records that you are about to access may contain highly sensitive health information, the redisclosure of which is protected by Article 27-F of the [facility] Public Health law. If you continue you may have access to information: Regarding HIV / AIDS; Provided by facilities licensed or operated by the [facility] Office of Mental Health; or Provided by the [facility] Office for People With Developmental Disabilities. If such information is present, then the following [facility] mandated warning applies: This information has been disclosed to you from confidential records which are protected by state law. State law prohibits you from making any further disclosure of this information without the specific written consent of the person to whom it pertains, or as otherwise permitted by law. Any unauthorized further disclosure in violation of state law may result in a fine or halfway sentence or both. A general authorization for the release of medical or other information is NOT sufficient authorization for further disc losure. Allergies and Adverse Reactions Type Description Substance Reaction Status Data Source(s ) Drug allergy Amoxicillin Amoxicillin Hives Active eCW1 ([facility]) Tape Tape Tape Hives Active eCW1 ([facility]) Influenza Vaccine Influenza Vaccine Influenza Vaccine Swelling, Hives , Active eCW1 ([facility]) Family History Family Member Name Family Member Gender Family Member Status Date o f Status Description Data Source(s) Unknown Male Problem MEDENT ([facility]) Unknown Unknown Problem MEDENT ([facility]) Unknown Unknown Problem MEDENT ([facility]) Encounters Encounter Providers Location Date Indications Data Source(s ) Unknown [address] [facility] [address] 08/01/2020 12:00:00 AM EST eCW1 ([facility]) Unknown [address] [facility] [place] [address] 07/31/2020 12:00:00 AM EST eCW1 ([facility]) Unknown [address] [facility] [place] [address] 06/15/2020 12:00:00 AM EST eCW1 ([facility]) Outpatient [address] [facility] Y [address] 01/03/2020 12:00:00 AM EDT eCW1 ([facility]) [facility] M[place] [address] [facility] Y [address] 12/16/2019 12:00:00 AM EDT eCW1 ([facility]) Outpatient 10/10/2019 05:03:00 AM EDT [facility] [place] [id number] [facility] [address] 09/26/2019 12:00:00 AM EST eCW1 ([facility]) Outpatient 09/22/2019 08:38:00 PM EST [facility] [place] [facility] [address] 09/20/2019 12:00:00 AM EST eCW1 ([facility]) [facility] [place] [facility] [address] 08/30/2019 12:00:00 AM EST eCW1 ([facility]) [facility] [place] [facility] [address] 08/18/2019 12:00:00 AM EST eCW1 ([facility]) Outpatient 08/11/2019 08:54:00 PM EST [facility] Medications Medication Brand Name Start Date Product Form Dose Route Admi nistrative Instructions Pharmacy Instructions Status Indications Reaction Description Data Source(s) Sitagliptin Phosphate 50 MG UNK 01/03/2020 12:00:00 AM EDT 1 .0 {tablet} active Sitagliptin Phosphate 50 MG eCW1 ([facility]) Sitagliptin Phosphate 50 MG UNK 01/03/2020 12:00:00 AM EDT 1 .0 {tablet} active Sitagliptin Phosphate 50 MG eCW1 ([facility]) Clobetasol Propionate 0.5 MG/ML Topical Cream Clobetas ol Propionate 0.05 % Clobetasol Propionate 0.05 % 09/26/2019 12:00:00 AM EST 1.0 {application_to_scalp} active Clobetaso l Propionate 0.05 % eCW1 ([facility]) Clobetasol Propionate 0.5 MG/ML Topical Cream Clobetas ol Propionate 0.05 % Clobetasol Propionate 0.05 % 09/26/2019 12:00:00 AM EST active 1 application to scalp eCW1 ([facility]) Clobetasol Propionate 0.5 MG/ML Topical Cream Clobetas ol Propionate 0.05 % Clobetasol Propionate 0.05 % 09/26/2019 12:00:00 AM EST 1.0 {application_to_scalp} active Clobetaso l Propionate 0.05 % eCW1 ([facility]) Rabeprazole sodium 20 MG Delayed Release Oral Tablet R abeprazole Sodium 20 MG Rabeprazole Sodium 20 MG 09/01/2019 12:00:00 AM EST active 1 tablet eCW1 ([facility]) Rabeprazole sodium 20 MG Delayed Release Oral Tablet R abeprazole Sodium 20 MG Rabeprazole Sodium 20 MG 09/01/2019 12:00:00 AM EST active 1 tablet eCW1 ([facility]) Insurance Providers Payer name Policy type / Coverage type Policy ID Covered constitution party ID Covered constitution party's relationship to phelps Policy Phelps Plan Information [facility] [employer]OYEE PROGRAM [id number] [facility] B [id number] P [id number] [facility] [employer] PROGRAM [id number] [facility] [employer]EE PROGRAM [id number] [id number] ANSI-Commercial [id number] ANSI-Commercial [id number] [place]SI-[place] [id number] ANSI-[place] [id number] ANSI-[place] [id number] [employer] [id number] ANSI-Commercial [id number] ANSI-Commercial [id number] ANSI-Commercial [id number] ANSI-Commercial [id number] ANSI-Commercial [id number] ANSI-Commercial [id number] ANSI-Commercial [id number] [facility] FED[employer]AL EMPLOYEE PROGRAM [id number] WI2 [id number] [employer] FEDERAL [id number] WI2 [id number] BS Fed Plan Commercial [id number] Family Dependent [id number] [employer] FEDERAL [id number] HU2 [id number] BC [place] FEDERAL B [id number] P [id number] [employer] B [id number] O [id number] [employer] FEDERAL -O/P [id number] [employer] FEDERAL [id number] WI2 [id number] BS Federal Plan Commercial Family Dependent IRWIN MEDICARE [id number] SP [id number] [employer]WIN MEDICARE [id number] SP [id number] [employer]WIN MEDICARE ADVANTAGE G [id number] Self [id number] IRWIN MEDICARE ADVANTAGE G [id number] Self [id number] IRWIN [id number] SP [id number] IRWIN MEDICARE ADVANTAGE [id number] SP [id number] OTHER [facility] HMO [id number] SP [id number] [facility] [address] [place] [facility] [id number] Problems, Conditions, and Diagnoses Code Display Name Description Problem Type Effective Dates Data Source(s) K21.9 087403518 Gastroesophageal ref lux disease, esophagitis presence not specified Problem 08/30/2019 12:00:00 AM EST eCW1 ([facility]) K21.9 665100158 Gastroesophageal ref lux disease, esophagitis presence not specified Problem 08/30/2019 12:00:00 AM EST eCW1 ([facility]) Z12.11 296481934 Colon cancer screening Problem 08/18/2019 12 :00:00 AM EST eCW1 ([facility]) Z12.11 [id number] Colon cancer screening Problem 08/18/2019 12 :00:00 AM EST eCW1 ([facility]) Surgeries/Procedures Procedure Description Date Indications Data Source(s) COLONOSCOPY W/BIOPSY SINGLE/MULTIPLE 01/03/2020 12:00: 00 AM EDT eCW1 ([facility]) Social History Code Duration Value Status Description Data Source(s ) Smoking 06/18/2020 12:00:00 AM EST Never Smoker completed Never S moker eCW1 ([facility]) Smoking 06/18/2020 12:00:00 AM EST Never Smoker completed Never S moker eCW1 ([facility]) Smoking 01/03/2020 12:00:00 AM EDT Never Smoker completed Never S moker eCW1 ([facility]) Smoking 01/03/2020 12:00:00 AM EDT Never Smoker completed Never S moker eCW1 ([facility]) Vital Signs ID Date Data Source UNK Name Value Range Interpretation Code Description Data Source(s) Diastolic blood pressure 72 mm[Hg] 72 mm[Hg] eCW1 ([facility]) Systolic blood pressure 120 mm[Hg] 120 mm[Hg] e CW1 ([facility]) Body temperature 97.8 [degF] 97.8 [degF] eCW1 ( [facility]) Respiratory rate 16 /min 16 /min eCW1 ([facility]) Heart rate 89 /min 89 /min eCW1 ([facility]) Body mass index (BMI) [Ratio] 30.18 kg/m2 30.18 kg/m2 eCW1 ([facility]) Body height 63 [in_i] 63 [in_i] eCW1 ([facility]) Body weight 170.4 [lb_av] 170.4 [lb_av] eCW1 ([facility]) Diastolic blood pressure 78 mm[Hg] 78 mm[Hg] eCW1 ([facility]) Systolic blood pressure 128 mm[Hg] 128 mm[Hg] e CW1 ([facility]) Body temperature 97.5 [degF] 97.5 [degF] eCW1 ( [facility]) Respiratory rate 20 /min 20 /min eCW1 ([facility]) Heart rate 82 /min 82 /min eCW1 ([facility]) Body mass index (BMI) [Ratio] 29.51 kg/m2 29.51 kg/m2 eCW1 ([facility]) Body height 63 [in_us] 63 [in_us] eCW1 ([facility]) Body weight Measured 166.6 [lb_av] 166.6 [lb_av ] eCW1 ([facility]) Patient Treatment Plan of Care Planned Activity Planned Date Details Description Data Source (s) Sitagliptin Phosphate 50 MG 01/03/2020 12:00:00 AM EDT eCW1 ([facility]) Sitagliptin Phosphate 50 MG 01/03/2020 12:00:00 AM EDT eCW1 ([facility]) Clobetasol Propionate 0.5 MG/ML Topical Cream 09/26/2019 12:00:00 A M EST eCW1 ([facility]) Rabeprazole sodium 20 MG Delayed Release Oral Tablet 020 12:00:00 AM EST eCW1 ([facility]) Rabeprazole sodium 20 MG Delayed Release Oral Tablet 020 12:00:00 AM EST eCW1 ([facility])
--- OUTSIDE RECORDS SUMMARY | 2020-09-06 16:24 | CCD ---
Author Author [facility] Organization [facility] Address Unknown Phone Unavailable Care Team Providers Care Assignment Officer Name Role Phone Michael, Dominik Unavailable PROBLEMS Type Condition ICD9-CM Code [id number] Code Onset Dates Condition S tatus SNOMED Code Notes Problem Type 2 diabetes mellitus without complications E11 .9 Active 954704401 Problem NAFLD (nonalcoholic fatty liver disease) K76.0 Active 776130552 Problem Breast cancer screening Z12.39 Active 49609365 8 Problem Allergic rhinitis J30.9 Active 55875995 Problem Overweight E66.3 Active 197175590 Problem Colon cancer screening Z12.11 Active 381430063 Problem Mixed hyperlipidemia E78.2 Active 665851059 Problem Gastroesophageal reflux disease, esophagitis pre sence not specified K21.9 Active 714939139 Problem Essential (primary) hypertension I10 Active 87019050 Problem Vitamin D deficiency E55.9 Active 96743160 Problem Psoriasis L40.9 Active 5478524 Problem Alopecia L65.9 Active 61106269 Problem 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 Active 41503517 ALLERGIES Allergen (clinical drug ingredient) Drug/Non Drug Allergy do cumented on EMR Reaction Allergy Type Onset Date Status Tape Hives Non Drug Allergy Active Influenza Vaccine Swelling, Hives, Non Drug Allergy Active amoxicillin Amoxicillin[place] [place] Code:[address]-57) Hives Drug Aller gy Active ENCOUNTERS from 1945 to 2020-06-15 Encounter Location Date Provider Diagnosis [address] [address] 20 May, 2 020 Dominik Rodriguez Type 2 diabetes mellitus without complications E11.9 and Gastroesophageal reflux disease, esophagitis presence not specified K21.9 IMMUNIZATIONS Vaccine Route Administration Date Status TDAP IM Intramuscular Sep 04, 2016 Administered Pneumococcal 0.5mL (Prevnar 13) IM Intramuscular Jul 24, 2017 Administered SOCIAL HISTORY Tobacco Use: Social History Observation Description Date Details (start date - stop date) Never Smoker Sex Assigned At : Social History Observation Description Sex Assigned At Unknown Language: Question Answer Notes Languages spoken: Nicaraguan Latter-Day: Question Answer Notes Latter-Day No sabianist beliefs that would impact health care. Sexual [...] Notes Start Da te End Date Status Multivitamins OTC 1 tablet by mouth Once a day Active Sitagliptin Phosphate 50 MG 1 tablet Orally every morning for 90 day(s) Dec, Active Clobetasol Propionate 0.05 % 1 application to scalp Ex ternally Daily as needed for 10 day(s) Sep, Active Enalapril Maleate 20 MG 2 tablets Orally every morning for 90 day(s) Active ZEturfTouch Ultra Test - as directed In Vitro DX E11.9 Daily for 30 day(s) Sep, Active MetFORMIN HCl ER 500 MG 1 tab Orally bid Active Flunisolide 25 MCG/ACT (0.025%) 30 Nasally Twice a day Active Rosuvastatin Calcium 5 MG 1 tablet Orally Once a day for 90 day(s) Active Clobetasol Propionate 0.05 % 1 application to affected area Externally Twice a day x 10 days with flares for 90 day(s) Active Aspirin 81 MG 1 tablet by mouth Once a day Active Calcium 600 + D 600-400 MG-UNIT 1 tablet by mouth Once a day Active Minoxidil 5 % 1 drop to affected area Externally Twice a day for 90 day(s) Active Rabeprazole Sodium 20 MG 1 tablet Orally every morning for 90 day(s) Active Atenolol 50 mg 1 tablet Orally Once a day for 90 day(s) Active PROCEDURES No Information RESULTS No Results REASON FOR VISIT refills MEDICAL (GENERAL) HISTORY Type Description Date Medical [...] contractions Surgical History colonoscopy-pandiverticulosi s and internal hemorrhoids6863-cymhdoewpae-ytupyd[facility] , 12/2014 Surgical History appendectomy Surgical History C/S x 3 Surgical History cholecystectomy Surgical History D&C x2 Surgical History Breast biopsy right Surgical History Urethral diverticulum surgery 1989 Surgical History Right breast biopsy[place] [place]17 Hospitalization History surgical related Goals Section No Information Health Concerns No Information MEDICAL EQUIPMENT No Information MENTAL STATUS No Information FUNCTIONAL STATUS No Information ASSESSMENTS Encounter Date Diagnosis Assessment Notes Treatment Notes Treatm ent Clinical Notes May, Type 2 diabetes mellitus without complications ( ICD-10 - E11.9) May, Gastroesophageal reflux dise ase, esophagitis presence not specified (ICD-10 - K21.9) PLAN OF TREATMENT Medication Medication Name Sig Start Date Stop Date Enalapril Maleate 20 MG 2 tablets Orally every morning for 90 da y(s) Minoxidil 5 % 1 drop to affected area Externally Twice a day f or 90 day(s) Rosuvastatin Calcium 5 MG 1 tablet Orally Once a day for 90 day( s) Clobetasol Propionate 0.05 % 1 application to affected area Externally Twice a day x 10 days with flares for 90 day(s) Sitagliptin Phosphate 50 MG 1 tablet Orally every morning fo r 90 day(s) Dec, Atenolol 50 mg 1 tablet Orally Once a day for 90 day(s) Calcium 600 + D 600-400 MG-UNIT 1 tablet by mouth Once a day MetFORMIN HCl ER 500 MG 1 tab Orally bid Aspirin 81 MG 1 tablet by mouth Once a day Rabeprazole Sodium 20 MG 1 tablet Orally every morning for 90 da y(s) Flunisolide 25 MCG/ACT (0.025%) 30 Nasally Twice a day Multivitamins OTC 1 tablet by mouth Once a day Next Appt Details Provider Name:Dominik Rodriguez, 2020-06-18 0 2:30:00 PM, [address] [place] [address], [phone], Insurance Providers Payer Name Payer Address Payer Phone Insured Name Patient Relati onship to Insured Coverage Start Date Coverage End Date [place] [id number] [address] [place] [id number] Asher Birch
--- OUTSIDE RECORDS SUMMARY | 2020-09-06 17:13 | CCD ---
Author Author [facility] Organization [facility] Address Unknown Phone Unavailable Support Name Relationship Address Phone RE Next Of Kin Unknown Unavailable HOMEMAKER Next Of Kin - -, - - - NON, PERPT Next Of Kin - -- -, - - - Liliana MCGOVERN Next Of Kin [address] [place] [address] [place] [address] UNEMPLOYED Next Of Kin [address] [place] [address] UE Next Of Kin Unknown Unavailable ASHER MCGOVERN Next Of Kin [address] [place] [address] [place] [address] Unavailable Re-disclosure Warning The records that you [...] is protected by Article 27-F of the [facility] Public Health law. If you continue you may have access to information: Regarding HIV / AIDS; Provided by facilities licensed or operated by the [facility] Office of Mental Health; or Provided by the [facility] Office for People With Developmental Disabilities. If such information is present, then the following [facility] mandated warning applies: This information has [...] law may result in a fine or snf sentence or both. A general authorization for the release of medical or other information is NOT sufficient authorization for further disc losure. Allergies and Adverse Reactions Type Description Substance Reaction Status Data Source(s ) Drug allergy Amoxicillin Amoxicillin Hives Active eCW1 ([facility]) Tape Tape Tape Hives Active eCW1 ([facility]) Influenza Vaccine Influenza Vaccine Influenza Vaccine Swelling, Hives , Active eCW1 ([facility]) Family History Family Member Name Family Member Gender Family Member Status Date o f Status Description Data Source(s) Unknown Male Problem MEDENT ([facility]) Unknown Unknown Problem MEDENT ([facility]) Unknown Unknown Problem MEDENT ([facility]) Encounters Encounter Providers Location Date Indications Data Source(s ) [place] [address] [facility] [address] 08/01/2020 12:00:00 AM EST eCW1 (formerly [facility]) Unknown [address] [facility] [place] [address] 07/31/2020 12:00:00 AM EST eCW1 (formerly [facility]) Unknown [address] [facility] [place] [address] 06/15/2020 12:00:00 AM EST eCW1 (formerly [facility]) Outpatient [address] [facility] [place] [address] 01/03/2020 12:00:00 AM EDT eCW1 (formerly [facility]) [facility] [place] [address] [facility] [place] [address] 12/16/2019 12:00:00 AM EDT eCW1 (formerly [facility]) Outpatient 10/10/2019 05:03:00 AM EDT [facility] [place] [id number] [facility] [address] 09/26/2019 12:00:00 AM EST eCW1 (formerly [facility]) Outpatient 09/22/2019 08:38:00 PM EST [facility] [place] [facility] [address] 09/20/2019 12:00:00 AM EST eCW1 (formerly [facility]) [facility] [place] [facility] [address] 08/30/2019 12:00:00 AM EST eCW1 (formerly [facility]) [facility] [place] [facility] [address] 08/18/2019 12:00:00 AM EST eCW1 (formerly [facility]) Outpatient 08/11/2019 08:54:00 PM EST [facility] Medications Medication Brand Name Start Date Product Form Dose Route Admi nistrative Instructions Pharmacy Instructions Status Indications Reaction Description Data Source(s) Sitagliptin Phosphate 50 MG UNK 01/03/2020 12:00:00 AM EDT 1 .0 {tablet} active Sitagliptin Phosphate 50 MG eCW1 ([facility]) Sitagliptin Phosphate 50 MG UNK 01/03/2020 12:00:00 AM EDT 1 .0 {tablet} active Sitagliptin Phosphate 50 MG eCW1 ([facility]) Clobetasol Propionate 0.5 MG/ML Topical Cream Clobetas ol Propionate 0.05 % Clobetasol Propionate 0.05 % 09/26/2019 12:00:00 AM EST 1.0 {application_to_scalp} active Clobetaso l Propionate 0.05 % eCW1 ([facility]) Clobetasol Propionate 0.5 MG/ML Topical Cream Clobetas ol Propionate 0.05 % Clobetasol Propionate 0.05 % 09/26/2019 12:00:00 AM EST active 1 application to scalp eCW1 ([facility]) Clobetasol Propionate 0.5 MG/ML Topical Cream Clobetas ol Propionate 0.05 % Clobetasol Propionate 0.05 % 09/26/2019 12:00:00 AM EST 1.0 {application_to_scalp} active Clobetaso l Propionate 0.05 % eCW1 ([facility]) Rabeprazole sodium 20 MG Delayed Release Oral Tablet R abeprazole Sodium 20 MG Rabeprazole Sodium 20 MG 09/01/2019 12:00:00 AM EST active 1 tablet eCW1 ([facility]) Rabeprazole sodium 20 MG Delayed Release Oral Tablet R abeprazole Sodium 20 MG Rabeprazole Sodium 20 MG 09/01/2019 12:00:00 AM EST active 1 tablet eCW1 ([facility]) Insurance Providers Payer name Policy type / Coverage type Policy ID Covered alliance party ID Covered alliance party's relationship to phelps Policy Phelps Plan Information [facility] [employer] PROGRAM [id number] [facility] [id number] [facility] [id number] P [id number] [facility] [employer] [id number] HU [id number] [facility] [employer] [id number] HU [id number] ANSI-Commercial [id number] ANSI-Commercial [id number] ANSI-Function Space [id number] ANSI-Commercial [id number] ANSI-Function Space [id number] ANSIAcesis [id number] ANSI-Commercial [id number] ANSI-Commercial [id number] ANSI-Commercial [id number] ANSI-Commercial [id number] ANSI-Commercial [id number] ANSI-Commercial [id number] ANSI-Commercial [id number] [facility] [employer] PROGRAM [id number] WI2 [id number] [employer] FEDERAL [id number] WI2 [id number] BS Fed Plan Commercial [id number] Family Dependent [id number] [employer] FEDERAL [id number] HU2 [id number] BC BS [place] FEDERAL B [id number] P [id number] [employer]BS B [id number] O [id number] [employer]UE [employer] FEDERAL -O/P [id number] 01 [id number] [employer] FEDERAL [id number] WI2 [id number] BS Federal Plan Commercial Family Dependent [employer]WIN MEDICARE [id number] SP [id number] [employer]ICARE [id number] SP [id number] [employer]WIN MEDICARE ADVANTAGE G [id number] Self [id number] IRWIN MEDICARE ADVANTAGE G [id number] Self [id number] IRWIN [id number] SP [id number] IRWIN MEDICARE ADVANTAGE [id number] SP [id number] OTHER [facility] HMO [id number] SP [id number] [facility] [facility] [id number] Problems, Conditions, and Diagnoses Code Display Name Description Problem Type Effective Dates Data Source(s) K21.9 995297331 Gastroesophageal ref lux disease, esophagitis presence not specified Problem 08/30/2019 12:00:00 AM EST eCW1 ([facility]) K21.9 [id number] Gastroesophageal ref lux disease, esophagitis presence not specified Problem 08/30/2019 12:00:00 AM EST eCW1 ([facility]) Z12.11 [id number] Colon cancer screening Problem 08/18/2019 12 :00:00 AM EST eCW1 ([facility]) Z12.11 [id number] Colon cancer screening Problem 08/18/2019 12 :00:00 AM EST eCW1 ([facility]) Surgeries/Procedures Procedure Description Date Indications Data Source(s) COLONOSCOPY W/BIOPSY SINGLE/MULTIPLE 01/03/2020 12:00: 00 AM EDT eCW1 ([facility]) Social History Code Duration Value Status Description Data Source(s ) Smoking 06/18/2020 12:00:00 AM EST Never Smoker completed Never S moker eCW1 ([facility]) Smoking 06/18/2020 12:00:00 AM EST Never Smoker completed Never S moker eCW1 ([facility]) Smoking 01/03/2020 12:00:00 AM EDT Never Smoker completed Never S moker eCW1 ([facility]) Smoking 01/03/2020 12:00:00 AM EDT Never Smoker completed Never S moker eCW1 ([facility]) Vital Signs ID Date Data Source UNK Name Value Range Interpretation Code Description Data Source(s) Diastolic blood pressure 72 mm[Hg] 72 mm[Hg] eCW1 ([facility]) Systolic blood pressure 120 mm[Hg] 120 mm[Hg] e CW1 ([facility]) Body temperature 97.8 [degF] 97.8 [degF] eCW1 ( [facility]) Respiratory rate 16 /min 16 /min eCW1 ([facility]) Heart rate 89 /min 89 /min eCW1 ([facility]) Body mass index (BMI) [Ratio] 30.18 kg/m2 30.18 kg/m2 eCW1 ([facility]) Body height 63 [in_i] 63 [in_i] eCW1 ([facility]) Body weight 170.4 [lb_av] 170.4 [lb_av] eCW1 ([facility]) Diastolic blood pressure 78 mm[Hg] 78 mm[Hg] eCW1 ([facility]) Systolic blood pressure 128 mm[Hg] 128 mm[Hg] e CW1 ([facility]) Body temperature 97.5 [degF] 97.5 [degF] eCW1 ( [facility]) Respiratory rate 20 /min 20 /min eCW1 ([facility]) Heart rate 82 /min 82 /min eCW1 ([facility]) Body mass index (BMI) [Ratio] 29.51 kg/m2 29.51 kg/m2 eCW1 ([facility]) Body height 63 [in_us] 63 [in_us] eCW1 ([facility]) Body weight Measured 166.6 [lb_av] 166.6 [lb_av ] eCW1 ([facility]) Patient Treatment Plan of Care Planned Activity Planned Date Details Description Data Source (s) Sitagliptin Phosphate 50 MG 01/03/2020 12:00:00 AM EDT eCW1 ([facility]) Sitagliptin Phosphate 50 MG 01/03/2020 12:00:00 AM EDT eCW1 ([facility]) Clobetasol Propionate 0.5 MG/ML Topical Cream 09/26/2019 12:00:00 A M EST eCW1 ([facility]) Rabeprazole sodium 20 MG Delayed Release Oral Tablet 020 12:00:00 AM EST eCW1 (formerly [facility]) Rabeprazole sodium 20 MG Delayed Release Oral Tablet 020 12:00:00 AM EST eCW1 (formerly [facility])
--- NOTE | 2020-09-06 17:31 | REP ---
INDICATION: fall COMPARISON: None. TECHNIQUE: Four views left elbow. FINDINGS: There is a nondisplaced intra-articular fracture of the left radial head. I see no other evidence of acute fracture or dislocation. There is an associated joint effusion. Mild tendinous calcification of the lateral humeral epicondyle. IMPRESSION: Nondisplaced intra-articular fracture left radial head. <Electronically signed by Virgilio Murphy > 09/06/20 [id number]
--- NOTE | 2020-09-06 17:33 | REP ---
INDICATION: fall COMPARISON: None. TECHNIQUE: Two views left forearm. FINDINGS: There is nondisplaced fracture of the proximal head of the radius which is intra-articular. There is a joint effusion at the elbow. There is no other evidence of acute fracture or dislocation. IMPRESSION: Nondisplaced radial head fracture. <Electronically signed by Virgilio Murphy > 09/06/20 [id number]
--- NOTE | 2020-09-06 17:35 | REP ---
INDICATION: fall COMPARISON: None. TECHNIQUE: Four views left wrist. FINDINGS: There is no evidence of acute fracture, dislocation, or intrinsic bone disease. IMPRESSION: No fracture or dislocation. <Electronically signed by Virgilio Murphy > 09/06/20 [id number]
[2020-09-06 18:17] VITALS: BP 160/90
[2020-09-06] MEDS ORDERED: ACETAMINOPHEN TAB 650MG DOSE (2X325MG) PO ONE (18:30)
== END 2020-09-06 18:24 | disposition home or self-care (01) ==
LOC: M ED 16:19
DX: S52.572A Other intraarticular fracture of lower end of left radius, initial encounter for closed fracture (principal); Y92.009 Unspecified place in unspecified non-institutional (private) residence as the place of occurrence of the external cause; Y93.9 Activity, unspecified; Y99.9 Unspecified external cause status; W18.30XA Fall on same level, unspecified, initial encounter; E11.9 Type 2 diabetes mellitus without complications; I10 Essential (primary) hypertension; Z88.0 Allergy status to penicillin; Z88.1 Allergy status to other antibiotic agents; Z88.8 Allergy status to other drugs, medicaments and biological substances

== ENCOUNTER → 2020-09-21 | Outpatient (CLI) | payer BC ==
--- NOTE | 2020-09-21 16:33 | REP ---
INDICATION: F/U FX. COMPARISON: 09/06/2020. TECHNIQUE: Four views left elbow. FINDINGS: Nondisplaced intra-articular fracture of the head of the left radius is unchanged. Once again there is mild tendinous calcification along the lateral humeral epicondyle. A joint effusion is again noted. IMPRESSION: Stable nondisplaced intra-articular fracture radial head. <Electronically signed by Virgilio Murphy > 09/21/20 0638
== END ==
LOC: M SOG 08:20
PROVIDERS: ATTEND Orthopaedic Surgery Sports Medicine
DX: S52.122D Displaced fracture of head of left radius, subsequent encounter for closed fracture with routine healing (principal); Y92.9 Unspecified place or not applicable; Y93.9 Activity, unspecified; Y99.9 Unspecified external cause status

== ENCOUNTER → 2020-10-19 | Outpatient (CLI) | payer BC ==
--- NOTE | 2020-10-22 13:36 | REP ---
INDICATION: F/U FX. COMPARISON: Comparison left elbow radiographs are from September 21, 2020.. TECHNIQUE: Three views. FINDINGS: Three views of the left elbow demonstrate intra-articular slightly depressed fracture of the proximal radial head unchanged in position and appearance from the September 21, 2020 study. There is only slight deformity of the anterior fat pad which is an improvement from the prior study indicating decreased amount of joint fluid. IMPRESSION: Intra-articular fracture of the proximal radial head as above. <Electronically signed by Marvin Birch > 10/22/20 [id number]
== END ==
LOC: M SOG 13:11
PROVIDERS: ATTEND Orthopaedic Surgery Sports Medicine
DX: S52.122D Displaced fracture of head of left radius, subsequent encounter for closed fracture with routine healing (principal); X58.XXXD Exposure to other specified factors, subsequent encounter

== ENCOUNTER → 2020-11-07 | Outpatient (REF) | payer BC ==
[2020-11-07 14:11] LABS: BASO # 0.1 10^3/uL (0.0-0.2); BASO % 0.7 % (0.0-1.0); EOS # 0.4 10^3/uL (0.0-0.5); HEMATOCRIT 43.8 % (36.0-47.0); HEMOGLOBIN 14.3 g/dl (12.0-15.5); LYMPH % 24.1 % (24.0-44.0); MEAN CORPUSCULAR HEMOGLOBIN 30.6 pg (27.0-33.0); MEAN CORPUSCULAR HGB CONC 32.6 g/dl (32.0-36.5); MEAN CORPUSCULAR VOLUME 93.6 fl (80.0-96.0); MONO # 0.6 10^3/uL (0.0-0.8); MONO % 6.8 % (2.0-8.0); NEUTROPHILS # 5.3 10^3/uL (1.5-8.5); PLATELET COUNT, AUTOMATED 240 10^3/uL (150-450); RED BLOOD COUNT 4.68 10^6/uL (4.00-5.40); WHITE BLOOD COUNT 8.4 10^3/uL (4.0-10.0)
[2020-11-07 15:25] LABS: HEMOGLOBIN A1c 6.7 %
[2020-11-07 21:11] LABS: ALBUMIN 4.5 GM/DL (3.2-5.2); ALT/SGPT 58 U/L (12-78); BILIRUBIN,TOTAL 0.4 MG/DL (0.2-1.0); BLOOD UREA NITROGEN 15 MG/DL (7-18); CALCIUM LEVEL 10.6 MG/DL (8.8-10.2); CARBON DIOXIDE LEVEL 24 MEQ/L (21-32); CHLORIDE LEVEL 105 MEQ/L (98-107); CREATININE FOR GFR 0.82 MG/DL (0.55-1.30); FREE T4 0.96 NG/DL (0.76-1.46); GLOMERULAR FILTRATION RATE > 60.0 (>39); GLUCOSE, FASTING 155 MG/DL (70-100); POTASSIUM SERUM 4.7 MEQ/L (3.5-5.1); SODIUM LEVEL 140 MEQ/L (136-145); TOTAL PROTEIN 7.5 GM/DL (6.4-8.2)
[2020-11-08 13:12] LABS: THYROID PEROXIDASE ANTIBODY < 28.0 U/ML (<60.0)
== END ==
LOC: M PLALAB 09:10
PROVIDERS: ATTEND Family Medicine
DX: E11.9 Type 2 diabetes mellitus without complications (principal); E78.2 Mixed hyperlipidemia

== ENCOUNTER → 2021-03-05 | Outpatient (CLI) | payer BC ==
[2021-03-05 17:46] LABS: HEMOGLOBIN A1c 6.4 %
[2021-03-05 18:25] LABS: ALBUMIN 4.6 GM/DL (3.2-5.2); ALT/SGPT 43 U/L (12-78); BILIRUBIN,TOTAL 0.6 MG/DL (0.2-1.0); BLOOD UREA NITROGEN 20 MG/DL (7-18); CALCIUM LEVEL 10.1 MG/DL (8.8-10.2); CARBON DIOXIDE LEVEL 27 MEQ/L (21-32); CHLORIDE LEVEL 108 MEQ/L (98-107); CHOLESTEROL LEVEL 143 MG/DL (<200); CHOLESTEROL RISK RATIO 4.468 (<5); CREATININE FOR GFR 0.71 MG/DL (0.55-1.30); FERRITIN 82 NG/ML (8-252); FREE T4 0.97 NG/DL (0.76-1.46); GLOMERULAR FILTRATION RATE > 60.0 (>39); GLUCOSE, FASTING 98 MG/DL (70-100); HDL CHOLESTEROL 32 MG/DL (>40); LDL CHOLESTEROL 86 MG/DL (<100); NON-HDL-C 111 MG/DL; POTASSIUM SERUM 4.5 MEQ/L (3.5-5.1); PTH INTACT 20.7 PG/ML (18.5-88.0); SODIUM LEVEL 141 MEQ/L (136-145); TOTAL PROTEIN 7.4 GM/DL (6.4-8.2); TRIGLYCERIDES LEVEL 127 MG/DL (<150); VITAMIN B12 LEVEL 1198 PG/ML (247-911)
== END ==
LOC: M PLALAB 15:17
PROVIDERS: ATTEND Physician Assistant
DX: R53.83 Other fatigue (principal)

== ENCOUNTER → 2021-03-13 | Outpatient (CLI) | payer BC ==
--- NOTE | 2021-03-13 09:33 | REP ---
INDICATION: OTHER FATIGUE. COMPARISON: None. TECHNIQUE: AP, lateral, flexion/extension, swimmer's, bilateral oblique and open mouth views FINDINGS: Early advanced multilevel degenerative changes include endplate sclerosis, marginal spurring and disc space narrowing along with facet hypertrophy and subtle narrowing to the neural foramen. Alignment and lordosis maintained. No acute fracture/compression injury or subluxation. Open mouth view demonstrates normal C1-C2 articulation and odontoid process. IMPRESSION: Early advanced multilevel degenerative spondylosis. <Electronically signed by Werner Arreguin > 03/13/21 [id number]
[2021-03-13 11:05] LABS: BASO # 0.1 10^3/uL (0.0-0.2); BASO % 0.6 % (0.0-1.0); EOS # 0.5 10^3/uL (0.0-0.5); EOS % 6.7 % (0.0-3.0); HEMATOCRIT 42.4 % (36.0-47.0); HEMOGLOBIN 14.1 g/dl (12.0-15.5); LYMPH # 2.2 10^3/uL (1.5-5.0); MEAN CORPUSCULAR HEMOGLOBIN 30.5 pg (27.0-33.0); MEAN CORPUSCULAR HGB CONC 33.3 g/dl (32.0-36.5); MEAN CORPUSCULAR VOLUME 91.6 fl (80.0-96.0); MONO # 0.6 10^3/uL (0.0-0.8); MONO % 7.7 % (2.0-8.0); NEUTROPHILS # 4.6 10^3/uL (1.5-8.5); NEUTROPHILS % 57.6 % (36.0-66.0); PLATELET COUNT, AUTOMATED 257 10^3/uL (150-450); RED BLOOD COUNT 4.63 10^6/uL (4.00-5.40)
== END ==
LOC: M PLALAB 08:38
PROVIDERS: ATTEND Physician Assistant
DX: R53.83 Other fatigue (principal)

== ENCOUNTER → 2021-06-07 | Outpatient (CLI) | payer BC ==
[2021-06-07 11:24] LABS: HEMOGLOBIN A1c 6.1 %
[2021-06-07 11:36] LABS: ALBUMIN 4.2 GM/DL (3.2-5.2); ALT/SGPT 46 U/L (12-78); BILIRUBIN,TOTAL 0.5 MG/DL (0.2-1.0); BLOOD UREA NITROGEN 15 MG/DL (7-18); CALCIUM LEVEL 9.5 MG/DL (8.8-10.2); CARBON DIOXIDE LEVEL 27 MEQ/L (21-32); CHLORIDE LEVEL 107 MEQ/L (98-107); CHOLESTEROL LEVEL 137 MG/DL (<200); CHOLESTEROL RISK RATIO 4.029 (<5); CREATININE FOR GFR 0.77 MG/DL (0.55-1.30); FERRITIN 51 NG/ML (8-252); GLOMERULAR FILTRATION RATE > 60.0 (>39); GLUCOSE, FASTING 146 MG/DL (70-100); HDL CHOLESTEROL 34 MG/DL (>40); LDL CHOLESTEROL 72 MG/DL (<100); NON-HDL-C 103 MG/DL; POTASSIUM SERUM 4.7 MEQ/L (3.5-5.1); SODIUM LEVEL 141 MEQ/L (136-145); TOTAL PROTEIN 7.1 GM/DL (6.4-8.2); TRIGLYCERIDES LEVEL 155 MG/DL (<150)
[2021-06-07 11:45] LABS: TOTAL 25(OH) VITAMIN D 44.4 NG/ML (30.0-100.0)
[2021-06-07 11:46] LABS: PTH INTACT 34.4 PG/ML (18.5-88.0); VITAMIN B12 LEVEL 1214 PG/ML (247-911)
== END ==
LOC: M PLALAB 09:06
PROVIDERS: ATTEND Family Medicine
DX: D75.89 Other specified diseases of blood and blood-forming organs (principal); E55.9 Vitamin D deficiency, unspecified; E11.9 Type 2 diabetes mellitus without complications

== ENCOUNTER → 2021-07-03 | Outpatient (CLI) | payer BC ==
[~2021-07-03] MED LIST changes: +GLUCAGON INJ 1MG VIAL As Ordered ONE; +ISOVUE-370 76% 100ML VIAL As Ordered ONE; +NEULUMEX 0.1% SUSPENSION 450ML BOTTLE (FORMERLY VOLUMEN) As Ordered ONE
--- NOTE | 2021-07-04 05:16 | REP ---
INDICATION: FAM HX OF COLON CA COMPARISON: CT dated 10/25/2014 TECHNIQUE: Axial contrast-enhanced images from the lung bases to the pubic symphysis with images obtained in arterial and portal venous phases of enhancement. Low-dose oral contrast material was administered prior to imaging. Coronal and sagittal reformations were obtained. This CT examination was performed using the following dose reduction techniques: Automated exposure control, adjustment of mA and/or kv according to the patient's size, and use of iterative reconstruction technique. FINDINGS: There is moderate/significant sized hiatal hernia distending the diaphragmatic hiatus. Esophagus and stomach are otherwise normal in appearance. The small bowel from the duodenum through the terminal ileum and ileocecal valve are normal. The colon from the level of the cecum through the transverse and descending colon are normal. Distal descending through sigmoid colon demonstrate few scattered diverticula. No further enteric abnormalities are noted. A 5.7 cm fat containing left periumbilical hernia is identified via 2.1 cm defect through the rectus sheath just left lateral to the umbilicus. Liver, spleen, pancreas, bilateral adrenal glands and kidneys are normal. Cholelithiasis noted. Pelvis demonstrates normal bladder and uterus/adnexa. No ascites. No adenopathy. No free air. Atherosclerotic changes to the aorta and vasculature noted. Musculoskeletal structures demonstrate age-related changes without acute osseous abnormality. Lung bases are clear. IMPRESSION: Moderate to significant hiatal hernia. Few scattered sigmoid diverticula. 5.7 cm fat containing left periumbilical ventral hernia. <Electronically signed by Werner Arreguin > 07/04/21 0513
== END ==
LOC: M RAD 14:15
PROVIDERS: ATTEND Family Medicine
DX: Z80.0 Family history of malignant neoplasm of digestive organs (principal)
CPT/HCPCS: 74177; J1610; Q9967

== ENCOUNTER → 2021-07-15 | Outpatient (REF) | payer BC ==
[~2021-07-15] MED LIST changes: -GLUCAGON INJ 1MG VIAL As Ordered ONE; -ISOVUE-370 76% 100ML VIAL As Ordered ONE; -NEULUMEX 0.1% SUSPENSION 450ML BOTTLE (FORMERLY VOLUMEN) As Ordered ONE
== END ==
LOC: M SFHCPLAZ 13:36
PROVIDERS: ATTEND Family Medicine
DX: L57.0 Actinic keratosis (principal)

== ENCOUNTER → 2021-10-24 | Outpatient (CLI) | payer BC | LOC: M WHC 14:46 | PROVIDERS: ATTEND Family Medicine | DX: Z12.31 Encounter for screening mammogram for malignant neoplasm of breast (principal) ==

== ENCOUNTER → 2021-11-06 | Outpatient (CLI) | payer BC ==
[~2021-11-06] MED LIST changes: +BAYE81TA10 PO; +JANU100T PO; +RABE1TAB4 PO; +VITA-256 PO; +VITMTA PO
[2021-11-06 10:14] LABS: BASO % 0.5 % (0.0-1.0); EOS # 0.3 10^3/uL (0.0-0.5); EOS % 3.6 % (0.0-3.0); HEMOGLOBIN 14.6 g/dl (12.0-15.5); LYMPH # 2.3 10^3/uL (1.5-5.0); LYMPH % 30.2 % (24.0-44.0); MEAN CORPUSCULAR HEMOGLOBIN 30.6 pg (27.0-33.0); MEAN CORPUSCULAR HGB CONC 33.2 g/dl (32.0-36.5); MEAN CORPUSCULAR VOLUME 92.2 fl (80.0-96.0); MONO # 0.7 10^3/uL (0.0-0.8); MONO % 8.5 % (2.0-8.0); NEUTROPHILS # 4.4 10^3/uL (1.5-8.5); NEUTROPHILS % 56.8 % (36.0-66.0); PLATELET COUNT, AUTOMATED 237 10^3/uL (150-450); RED BLOOD COUNT 4.77 10^6/uL (4.00-5.40); WHITE BLOOD COUNT 7.7 10^3/uL (4.0-10.0)
[2021-11-06 10:46] LABS: ALBUMIN 4.2 GM/DL (3.2-5.2); ALT/SGPT 49 U/L (12-78); BILIRUBIN,TOTAL 0.4 MG/DL (0.2-1.0); BLOOD UREA NITROGEN 15 MG/DL (7-18); CALCIUM LEVEL 10.3 MG/DL (8.8-10.2); CARBON DIOXIDE LEVEL 28 MEQ/L (21-32); CHLORIDE LEVEL 108 MEQ/L (98-107); CREATININE FOR GFR 0.79 MG/DL (0.55-1.30); FERRITIN 52 NG/ML (8-252); GLOMERULAR FILTRATION RATE > 60.0 (>39); GLUCOSE, FASTING 171 MG/DL (70-100); NT-PRO BNP 52 PG/ML (<125); POTASSIUM SERUM 5.5 MEQ/L (3.5-5.1); SODIUM LEVEL 143 MEQ/L (136-145)
[2021-11-06 10:56] LABS: MALB URINE SIEMENS 18.6 MG/L; MAU/CREAT RATIO 15.2 MCG/MG (0.0-30.0)
[2021-11-06 11:02] LABS: HEMOGLOBIN A1c 6.9 %
== END ==
LOC: M PLALAB 08:23
PROVIDERS: ATTEND Family Medicine
DX: E11.9 Type 2 diabetes mellitus without complications (principal)

== ENCOUNTER → 2021-11-07 | Outpatient (CLI) | payer BC ==
[2021-11-07 10:12] LABS: ALBUMIN 4.1 GM/DL (3.2-5.2); BLOOD UREA NITROGEN 14 MG/DL (7-18); CARBON DIOXIDE LEVEL 26 MEQ/L (21-32); CHLORIDE LEVEL 109 MEQ/L (98-107); CREATININE FOR GFR 0.73 MG/DL (0.55-1.30); GLOMERULAR FILTRATION RATE > 60.0 (>39); GLUCOSE, FASTING 166 MG/DL (70-100); PHOSPHORUS LEVEL 4.2 MG/DL (2.5-4.9); POTASSIUM SERUM 5.1 MEQ/L (3.5-5.1); SODIUM LEVEL 143 MEQ/L (136-145)
== END ==
LOC: M PLALAB 08:33
PROVIDERS: ATTEND Physician Assistant
DX: E11.9 Type 2 diabetes mellitus without complications (principal)

== ENCOUNTER → 2021-11-08 | Outpatient (CLI) | payer BC | LOC: M LABSMTC 09:43 | PROVIDERS: ATTEND Anesthesiology | DX: Z01.812 Encounter for preprocedural laboratory examination (principal); Z20.822 Contact with and (suspected) exposure to COVID-19 ==

== ENCOUNTER 2021-11-13 09:36 | Day surgery (SDC) | payer BC ==
[~2021-11-13] VITALS: Ht 162.6 cm; Wt 73.3 kg
[~2021-11-13 09:36] MED LIST changes: +NS 1,000 ML IV ONE
[2021-11-13] MEDS ORDERED: propofoL 500 MG/50 ML VIAL As Ordered ONE (11:06)
[2021-11-13] MEDS ORDERED: fentaNYL 100 MCG/2 ML INJECTION As Ordered ONE (11:07)
[2021-11-13] MEDS ORDERED: LIDOCAINE 2% 100MG/5ML SDV (FOR ANES.) As Ordered ONE (11:07)
[2021-11-13] MEDS ORDERED: PHENYLephrine 500MCG 5ML (100MCG/ML) SYRINGE As Ordered ONE (11:31)
[2021-11-13 12:11] VITALS: BP 135/94
== END 2021-11-13 12:30 | disposition home or self-care (01) ==
LOC: M OPP 09:36
PROVIDERS: ATTEND Internal Medicine Gastroenterology
DX: Z12.11 Encounter for screening for malignant neoplasm of colon (principal); Z80.0 Family history of malignant neoplasm of digestive organs; K57.30 Diverticulosis of large intestine without perforation or abscess without bleeding; K64.0 First degree hemorrhoids; K44.9 Diaphragmatic hernia without obstruction or gangrene; K22.89 Other specified disease of esophagus; K31.89 Other diseases of stomach and duodenum; R12 Heartburn; E11.9 Type 2 diabetes mellitus without complications; I10 Essential (primary) hypertension; Z79.02 Long term (current) use of antithrombotics/antiplatelets; Z79.82 Long term (current) use of aspirin; Z79.84 Long term (current) use of oral hypoglycemic drugs; Z79.899 Other long term (current) drug therapy; Z91.040 Latex allergy status; Z91.048 Other nonmedicinal substance allergy status
CPT/HCPCS: 43239; 45378; 88305; J2370; J3010

== ENCOUNTER → 2022-05-21 | Outpatient (CLI) | payer BC ==
[~2022-05-21] MED LIST changes: -NS 1,000 ML IV ONE
[2022-05-21 14:49] LABS: INR 0.99; PROTHROMBIN TIME 13.3 SECONDS (12.5-14.5)
[2022-05-21 14:50] LABS: PARTIAL THROMBOPLASTIN TIME 30.9 SECONDS (24.8-34.2)
[2022-05-21 17:16] LABS: BLOOD UREA NITROGEN 14 MG/DL (7-18); CALCIUM LEVEL 9.6 MG/DL (8.8-10.2); CARBON DIOXIDE LEVEL 27 MEQ/L (21-32); CHLORIDE LEVEL 106 MEQ/L (98-107); CREATININE FOR GFR 0.72 MG/DL (0.55-1.30); GLOMERULAR FILTRATION RATE > 60.0 (>39); GLUCOSE, FASTING 147 MG/DL (70-100); SODIUM LEVEL 139 MEQ/L (136-145)
[2022-05-21 17:17] LABS: ALBUMIN 4.1 GM/DL (3.2-5.2); ALT/SGPT 42 U/L (12-78); BILIRUBIN,TOTAL 0.3 MG/DL (0.2-1.0)
[2022-05-21 20:31] LABS: HEMOGLOBIN A1c 6.5 %
== END ==
LOC: M PLALAB 09:47
PROVIDERS: ATTEND Family Medicine
DX: E11.9 Type 2 diabetes mellitus without complications (principal); K76.0 Fatty (change of) liver, not elsewhere classified; E55.9 Vitamin D deficiency, unspecified

== ENCOUNTER → 2022-05-30 | Outpatient (CLI) | payer BC | LOC: M PLAIMG 10:57 | PROVIDERS: ATTEND Family Medicine | DX: M17.0 Bilateral primary osteoarthritis of knee (principal) ==

== ENCOUNTER 2022-06-20 15:18 | Inpatient (IN) | payer MEDICARE, BC ==
[~2022-06-20] VITALS: Ht 160 cm; Wt 72.7 kg
[2022-06-20] MEDS ORDERED: CARV25TA PO (15:45)
[2022-06-20] MEDS ORDERED: OMEP40CA5 PO (15:45)
[2022-06-20] MEDS ORDERED: LEXA5TAB13 PO (15:45)
[2022-06-20] MEDS ORDERED: ONDANSETRON 4MG 2ML VIAL IV ONE (16:10)
[2022-06-20] MEDS: MORPHINE 2 MG/ML 1ML VIAL IV PRN ×2 (16:20→17:46)
[2022-06-20 16:36] LABS: BASO # 0.1 10^3/uL (0.0-0.2); BASO % 0.3 % (0.0-1.0); EOS # 0.4 10^3/uL (0.0-0.5); EOS % 2.4 % (0.0-3.0); HEMATOCRIT 41.3 % (36.0-47.0); HEMOGLOBIN 13.7 g/dl (12.0-15.5); LYMPH % 11.3 % (24.0-44.0); MEAN CORPUSCULAR HEMOGLOBIN 30.4 pg (27.0-33.0); MEAN CORPUSCULAR HGB CONC 33.2 g/dl (32.0-36.5); MEAN CORPUSCULAR VOLUME 91.8 fl (80.0-96.0); MONO # 0.9 10^3/uL (0.0-0.8); MONO % 5.3 % (2.0-8.0); NEUTROPHILS # 14.2 10^3/uL (1.5-8.5); NEUTROPHILS % 80.1 % (36.0-66.0); PLATELET COUNT, AUTOMATED 218 10^3/uL (150-450); WHITE BLOOD COUNT 17.7 10^3/uL (4.0-10.0)
[2022-06-20 16:47] LABS: INR 0.94; PARTIAL THROMBOPLASTIN TIME 25.2 SECONDS (24.8-34.2); PROTHROMBIN TIME 12.8 SECONDS (12.5-14.5)
[2022-06-20] MEDS ORDERED: LABETALOL 100MG TAB PO ONE (16:50)
[2022-06-20] MEDS ORDERED: LABETALOL 100MG/20ML VIAL IV STA (16:50)
[2022-06-20 16:59] LABS: BLOOD UREA NITROGEN 11 MG/DL (9-23); CALCIUM LEVEL 9.5 MG/DL (8.3-10.6); CARBON DIOXIDE LEVEL 24 MMOL/L (20-31); CHLORIDE LEVEL 106 MMOL/L (98-107); CREATININE FOR GFR 0.54 MG/DL (0.55-1.30); GLOMERULAR FILTRATION RATE > 60.0 (>39); GLUCOSE, FASTING 122 MG/DL (74-106); POTASSIUM SERUM 4.6 MMOL/L (3.5-5.1); SODIUM LEVEL 141 MMOL/L (136-145)
[2022-06-20 17:08] LABS: RSV AMPLIFICATION NEGATIVE (NEGATIVE)
[2022-06-20] MEDS ORDERED: DICL1GEL3 TOP (17:48)
[2022-06-20] MEDS ORDERED: METF750T36 PO (17:48)
[2022-06-20] MEDS ORDERED: ACET500T15 PO (17:48)
[2022-06-20] MEDS ORDERED: HOME MED LIST COMPLETE! XX SCH (17:50)
[2022-06-20] MEDS ORDERED: ACETAMINOPHEN 500 MG TAB PO PRN (18:35)
[2022-06-20] MEDS ORDERED: PILL CUTTER 1 EACH XX PRN (18:40)
[2022-06-20] MEDS ORDERED: GLUCAGON INJ 1MG VIAL SC PRN (18:50)
[2022-06-20] MEDS ORDERED: GLUCOSE 4GM CHEW TABLET PO PRN (18:50)
[2022-06-20] MEDS ORDERED: LABETALOL 100MG/20ML VIAL IV PRN (18:50)
[2022-06-20] MEDS ORDERED: hydrALAZINE 20MG/ML 1ML VIAL (J0360 PER 20MG) IV PRN (18:50)
[2022-06-20] MEDS ORDERED: DEXTROSE 50% 50 ML SYRINGE IV PRN (18:50)
[2022-06-20] MEDS ORDERED: LORazepam 1 MG TAB PO ONE (19:00)
[2022-06-20] MEDS ORDERED: MORPHINE 4 MG/ML 1ML VIAL IV PRN (19:00)
[2022-06-20] MEDS: INSULIN LISPRO (NovoLOG) PER UNIT SC SCH (19:39)
[2022-06-20] MEDS: MULTIVITAMINS/MINERALS THERAP 1 TAB PO SCH (19:43)
[2022-06-20] MEDS: ROSUVASTATIN 10 MG TAB (CRESTOR) PO SCH (19:43)
[2022-06-20] MEDS: CARVedilol 12.5 MG TAB PO SCH (19:44)
[2022-06-20 21:20] VITALS: BP 196/102
[2022-06-20 22:15] VITALS: BP 170/82
[2022-06-21] VITALS (14 sets, daily range): BP systolic 136–186; BP diastolic 65–92
[2022-06-21] MEDS: ACETAMINOPHEN 500 MG TAB PO SCH ×4 (00:16→17:36)
[2022-06-21] MEDS ORDERED: METOPROLOL 5 MG/5 ML VIAL IV STA (00:20)
[2022-06-21] MEDS ORDERED: ALPRAZolam 0.5 MG TAB PO ONE (03:55)
[2022-06-21 05:48] LABS: HEMATOCRIT 36.4 % (36.0-47.0); HEMOGLOBIN 12.3 g/dl (12.0-15.5); MEAN CORPUSCULAR HEMOGLOBIN 30.4 pg (27.0-33.0); MEAN CORPUSCULAR HGB CONC 33.8 g/dl (32.0-36.5); MEAN CORPUSCULAR VOLUME 89.9 fl (80.0-96.0); PLATELET COUNT, AUTOMATED 209 10^3/uL (150-450); RED BLOOD COUNT 4.05 10^6/uL (4.00-5.40); WHITE BLOOD COUNT 11.6 10^3/uL (4.0-10.0)
[2022-06-21] MEDS: INSULIN LISPRO (NovoLOG) PER UNIT SC SCH ×5 (05:56→21:00)
[2022-06-21 06:02] LABS: INR 1.24; PROTHROMBIN TIME 15.9 SECONDS (12.5-14.5)
[2022-06-21 06:23] LABS: BLOOD UREA NITROGEN 11 MG/DL (9-23); CALCIUM LEVEL 8.6 MG/DL (8.3-10.6); CARBON DIOXIDE LEVEL 25 MMOL/L (20-31); CHLORIDE LEVEL 101 MMOL/L (98-107); CREATININE FOR GFR 0.57 MG/DL (0.55-1.30); GLOMERULAR FILTRATION RATE > 60.0 (>39); GLUCOSE, FASTING 133 MG/DL (74-106); SODIUM LEVEL 138 MMOL/L (136-145)
[2022-06-21] MEDS: OMEPRAZOLE 20MG CAP PO SCH (09:42)
[2022-06-21] MEDS: CARVedilol 12.5 MG TAB PO SCH ×2 (09:43→20:27)
[2022-06-21] MEDS: LIDOCAINE 5% (LIDODERM) PATCH TD SCH (09:43)
[2022-06-21] MEDS ORDERED: TRANEXAMIC ACID 100 MG/ML 10ML VIAL As Ordered ONE (11:23)
[2022-06-21] MEDS ORDERED: ceFAZolin 2 GM/D5W 50 ML IV BAG (J0690 PER 500MG) As Ordered ONE (11:23)
[2022-06-21] MEDS ORDERED: VANCOMYCIN 500MG/10ML VIAL As Ordered ONE (11:23)
[2022-06-21] MEDS ORDERED: CLINDAMYCIN 900MG/50ML PREMIX BAG As Ordered ONE (11:37)
[2022-06-21] MEDS ORDERED: KETAMINE HCL 200 MG/20 ML VIAL As Ordered ONE (12:08)
[2022-06-21] MEDS ORDERED: ONDANSETRON 4MG 2ML VIAL As Ordered ONE (12:09)
[2022-06-21] MEDS ORDERED: MIDAZOLAM INJ 2MG/2ML VIAL (J2250 PER 1MG) As Ordered ONE (12:09)
[2022-06-21] MEDS ORDERED: propofoL 200 MG/20 ML VIAL As Ordered ONE ×2 (12:09→12:12)
[2022-06-21] MEDS ORDERED: fentaNYL 250 MCG/5 ML INJECTION As Ordered ONE (12:09)
[2022-06-21] MEDS ORDERED: dexameTHASONE 4 MG/ML 1ML VIAL (J1100 PER 1MG) As Ordered ONE (12:09)
[2022-06-21] MEDS ORDERED: METOCLOPRAMIDE INJ 10MG/2ML VIAL (J2765 PER 1) As Ordered ONE (12:09)
[2022-06-21] MEDS ORDERED: LIDOCAINE 2% 100MG/5ML SDV (FOR ANES.) As Ordered ONE (12:09)
[2022-06-21] MEDS ORDERED: ACETAMINOPHEN 1000MG 100ML IV BAG As Ordered ONE (12:20)
[2022-06-21] MEDS ORDERED: VASOPRESSIN INJ 20 UNITS/ML VIAL As Ordered ONE (12:26)
[2022-06-21] MEDS ORDERED: fentaNYL 100 MCG/2 ML INJECTION IV PRN (13:55)
[2022-06-21] MEDS ORDERED: MORPHINE 2 MG/ML 1ML VIAL IV PRN (13:55)
[2022-06-21] MEDS ORDERED: ONDANSETRON 4MG 2ML VIAL IV PRN (13:55)
[2022-06-21] MEDS ORDERED: LR 1,000 ML IV SCH (13:55)
[2022-06-21] MEDS ORDERED: oxyCODONE 5MG TAB PO PRN (13:55)
[2022-06-21] MEDS: KETOROLAC 30 MG/ML 1ML VIAL IV SCH ×2 (16:10→20:28)
[2022-06-21] MEDS: CLINDAMYCIN 900 MG in IV 1 EA IV SCH (20:24)
[2022-06-21] MEDS: MULTIVITAMINS/MINERALS THERAP 1 TAB PO SCH (20:26)
[2022-06-21] MEDS: ROSUVASTATIN 10 MG TAB (CRESTOR) PO SCH (20:27)
[2022-06-22] VITALS: BP 122/57
[2022-06-22] MEDS: ACETAMINOPHEN 500 MG TAB PO SCH ×5 (00:28→23:33)
[2022-06-22] MEDS: CLINDAMYCIN 900 MG in IV 1 EA IV SCH ×2 (03:33→12:17)
[2022-06-22] MEDS: KETOROLAC 30 MG/ML 1ML VIAL IV SCH ×2 (03:33→08:43)
[2022-06-22 04:00] VITALS: BP 160/74
[2022-06-22 06:46] LABS: INR 1.12; PROTHROMBIN TIME 14.7 SECONDS (12.5-14.5)
[2022-06-22 07:40] LABS: HEMATOCRIT 32.9 % (36.0-47.0); HEMOGLOBIN 11.2 g/dl (12.0-15.5); MEAN CORPUSCULAR VOLUME 91.1 fl (80.0-96.0); PLATELET COUNT, AUTOMATED 188 10^3/uL (150-450); RED BLOOD COUNT 3.61 10^6/uL (4.00-5.40); WHITE BLOOD COUNT 11.5 10^3/uL (4.0-10.0)
[2022-06-22 08:00] VITALS: BP 171/80
[2022-06-22 08:02] LABS: BLOOD UREA NITROGEN 13 MG/DL (9-23); CALCIUM LEVEL 8.2 MG/DL (8.3-10.6); CARBON DIOXIDE LEVEL 28 MMOL/L (20-31); CHLORIDE LEVEL 100 MMOL/L (98-107); GLOMERULAR FILTRATION RATE > 60.0 (>39); GLUCOSE, FASTING 127 MG/DL (74-106); POTASSIUM SERUM 4.1 MMOL/L (3.5-5.1); SODIUM LEVEL 137 MMOL/L (136-145)
[2022-06-22] MEDS: ASPIRIN 81MG ENTERIC TABLET PO SCH (08:26)
[2022-06-22] MEDS: ESCITALOPRAM OXALATE 5MG TABLET (LEXAPRO) PO SCH (08:26)
[2022-06-22] MEDS: INSULIN LISPRO (NovoLOG) PER UNIT SC SCH ×4 (08:26→20:25)
[2022-06-22] MEDS: OMEPRAZOLE 20MG CAP PO SCH (08:27)
[2022-06-22] MEDS: ENALAPRIL MALEATE 10 MG TAB PO SCH (08:42)
[2022-06-22] MEDS: LIDOCAINE 5% (LIDODERM) PATCH TD SCH (08:43)
[2022-06-22] MEDS: CARVedilol 12.5 MG TAB PO SCH ×2 (08:44→20:29)
[2022-06-22 12:00] VITALS: BP 173/80
[2022-06-22] MEDS: ENOXAPARIN 40MG/0.4ML SYRINGE (J1650 PER 10MG) SC SCH (12:57)
[2022-06-22 13:22] LABS: FERRITIN 87.1 NG/ML (7.3-270.7); IRON (FE) 27 UG/DL (50-170); PERCENT SATURATION 9.7 % (13.2-45.0); TOTAL IRON BINDING CAPACITY 278 UG/DL (250-425)
[2022-06-22 16:00] VITALS: BP 141/67
[2022-06-22 20:00] VITALS: BP 161/73
[2022-06-22] MEDS: MULTIVITAMINS/MINERALS THERAP 1 TAB PO SCH (20:29)
[2022-06-22] MEDS: ROSUVASTATIN 10 MG TAB (CRESTOR) PO SCH (20:29)
[2022-06-22] MEDS: oxyCODONE 5MG TAB PO PRN (20:37)
[2022-06-23] VITALS (8 sets, daily range): BP systolic 121–178; BP diastolic 58–80
[2022-06-23] MEDS: oxyCODONE 5MG TAB PO PRN ×2 (04:23→08:59)
[2022-06-23] MEDS: ACETAMINOPHEN 500 MG TAB PO SCH ×4 (05:39→23:35)
[2022-06-23 06:25] LABS: HEMATOCRIT 31.6 % (36.0-47.0); MEAN CORPUSCULAR HEMOGLOBIN 31.7 pg (27.0-33.0); MEAN CORPUSCULAR HGB CONC 34.8 g/dl (32.0-36.5); MEAN CORPUSCULAR VOLUME 91.1 fl (80.0-96.0); PLATELET COUNT, AUTOMATED 170 10^3/uL (150-450); RED BLOOD COUNT 3.47 10^6/uL (4.00-5.40); WHITE BLOOD COUNT 12.4 10^3/uL (4.0-10.0)
[2022-06-23 06:37] LABS: INR 1.15
[2022-06-23 06:50] LABS: BLOOD UREA NITROGEN 6 MG/DL (9-23); CALCIUM LEVEL 8.3 MG/DL (8.3-10.6); CARBON DIOXIDE LEVEL 28 MMOL/L (20-31); CHLORIDE LEVEL 103 MMOL/L (98-107); GLOMERULAR FILTRATION RATE > 60.0 (>39); GLUCOSE, FASTING 189 MG/DL (74-106); SODIUM LEVEL 139 MMOL/L (136-145)
[2022-06-23] MEDS: OMEPRAZOLE 20MG CAP PO SCH (08:39)
[2022-06-23] MEDS: ASPIRIN 81MG ENTERIC TABLET PO SCH (08:40)
[2022-06-23] MEDS: CARVedilol 12.5 MG TAB PO SCH ×2 (08:53→20:23)
[2022-06-23] MEDS: ESCITALOPRAM OXALATE 5MG TABLET (LEXAPRO) PO SCH (09:00)
[2022-06-23] MEDS: ENALAPRIL MALEATE 10 MG TAB PO SCH (09:00)
[2022-06-23] MEDS ORDERED: FERRIC CARBOXYMALTOSE INJ 1,000 MG, VIAL MATE ADAPTER 1 EACH in NS 250 ML IV ONE (09:00)
[2022-06-23] MEDS: INSULIN LISPRO (NovoLOG) PER UNIT SC SCH ×4 (09:02→20:22)
[2022-06-23] MEDS: LIDOCAINE 5% (LIDODERM) PATCH TD SCH ×2 (09:05→21:57)
[2022-06-23] MEDS ORDERED: PERC5TAB12 PO (09:19)
[2022-06-23] MEDS: ENOXAPARIN 40MG/0.4ML SYRINGE (J1650 PER 10MG) SC SCH (13:21)
[2022-06-23] MEDS: MULTIVITAMINS/MINERALS THERAP 1 TAB PO SCH (20:23)
[2022-06-23] MEDS: ROSUVASTATIN 10 MG TAB (CRESTOR) PO SCH (20:23)
[2022-06-24 04:00] VITALS: BP 170/80
[2022-06-24] MEDS: ACETAMINOPHEN 500 MG TAB PO SCH ×2 (04:31→12:09)
[2022-06-24] MEDS ORDERED: ALPRAZolam 0.5 MG TAB PO ONE (05:00)
[2022-06-24 06:16] LABS: HEMATOCRIT 30.4 % (36.0-47.0); HEMOGLOBIN 10.3 g/dl (12.0-15.5); MEAN CORPUSCULAR HEMOGLOBIN 30.8 pg (27.0-33.0); MEAN CORPUSCULAR HGB CONC 33.9 g/dl (32.0-36.5); PLATELET COUNT, AUTOMATED 190 10^3/uL (150-450); RED BLOOD COUNT 3.34 10^6/uL (4.00-5.40); WHITE BLOOD COUNT 11.3 10^3/uL (4.0-10.0)
[2022-06-24 06:29] LABS: INR 1.13; PROTHROMBIN TIME 14.8 SECONDS (12.5-14.5)
[2022-06-24 06:37] LABS: CARBON DIOXIDE LEVEL 27 MMOL/L (20-31); CHLORIDE LEVEL 102 MMOL/L (98-107); POTASSIUM SERUM 3.3 MMOL/L (3.5-5.1); SODIUM LEVEL 138 MMOL/L (136-145)
[2022-06-24 06:41] LABS: CALCIUM LEVEL 8.6 MG/DL (8.3-10.6)
[2022-06-24 06:42] LABS: GLUCOSE, FASTING 150 MG/DL (74-106)
[2022-06-24 06:44] LABS: GLOMERULAR FILTRATION RATE > 60.0 (>39)
[2022-06-24 06:45] LABS: BLOOD UREA NITROGEN < 5 MG/DL (9-23)
[2022-06-24] MEDS ORDERED: POTASSIUM CHLORIDE 10MEQ SR TABLET PO ONE (07:20)
[2022-06-24] MEDS: INSULIN LISPRO (NovoLOG) PER UNIT SC SCH ×2 (07:30→12:00)
[2022-06-24 07:43] VITALS: BP 160/82
[2022-06-24] MEDS: ESCITALOPRAM OXALATE 5MG TABLET (LEXAPRO) PO SCH (08:24)
[2022-06-24] MEDS: ASPIRIN 81MG ENTERIC TABLET PO SCH (08:24)
[2022-06-24 08:25] VITALS: BP 160/82
[2022-06-24] MEDS: ENALAPRIL MALEATE 10 MG TAB PO SCH (08:25)
[2022-06-24] MEDS: CARVedilol 12.5 MG TAB PO SCH (08:25)
[2022-06-24] MEDS: OMEPRAZOLE 20MG CAP PO SCH (08:25)
[2022-06-24] MEDS: LIDOCAINE 5% (LIDODERM) PATCH TD SCH (08:26)
[2022-06-24] MEDS ORDERED: IRON65TA2 PO (10:01)
[2022-06-24] MEDS ORDERED: AMLO1TAB24 PO (10:01)
[2022-06-24] MEDS ORDERED: BAYE81TA10 PO (10:01)
== END 2022-06-24 14:51 | disposition home health service (06) | DRG 522 ==
LOC: M ED 15:18 → M ED INP 15:19 → M PCU 21:17 → OBSVTOIN 06-23 15:55
PROVIDERS: ADMIT Student in an Organized Health Care Education/Training Program; ATTEND Student in an Organized Health Care Education/Training Program
PROC: 0SRR0JZ Replacement of Right Hip Joint, Femoral Surface with Synthetic Substitute, Open Approach (ICD-10-PCS; principal; 2022-06-21 12:00)
DX: M84.651A Pathological fracture in other disease, right femur, initial encounter for fracture (principal); E11.9 Type 2 diabetes mellitus without complications; I10 Essential (primary) hypertension; E78.5 Hyperlipidemia, unspecified; K21.9 Gastro-esophageal reflux disease without esophagitis; J45.20 Mild intermittent asthma, uncomplicated; K76.0 Fatty (change of) liver, not elsewhere classified; M85.851 Other specified disorders of bone density and structure, right thigh; K44.9 Diaphragmatic hernia without obstruction or gangrene; M47.812 Spondylosis without myelopathy or radiculopathy, cervical region; I44.0 Atrioventricular block, first degree; D64.9 Anemia, unspecified; K64.9 Unspecified hemorrhoids; I16.0 Hypertensive urgency; L40.9 Psoriasis, unspecified; Z90.49 Acquired absence of other specified parts of digestive tract; Z79.82 Long term (current) use of aspirin; Z79.84 Long term (current) use of oral hypoglycemic drugs; Z79.899 Other long term (current) drug therapy; Z88.0 Allergy status to penicillin; Z91.040 Latex allergy status; Z91.048 Other nonmedicinal substance allergy status

== ENCOUNTER → 2022-07-08 | Outpatient (CLI) | payer MEDICARE, BC ==
[~2022-07-08] MED LIST changes: +ACET500T15 PO; +AMLO1TAB24 PO; +CARV25TA PO; +DICL1GEL3 TOP; +IRON65TA2 PO; +LEXA5TAB13 PO; +METF750T36 PO; +OMEP40CA5 PO; +PERC5TAB12 PO
== END ==
LOC: M SOG 11:29
PROVIDERS: ATTEND Orthopaedic Surgery Hand Surgery
DX: Z48.89 Encounter for other specified surgical aftercare (principal)

== ENCOUNTER → 2022-07-29 | Outpatient (CLI) | payer BC | LOC: M PLAIMG 12:22 | PROVIDERS: ATTEND Family Medicine | DX: M47.812 Spondylosis without myelopathy or radiculopathy, cervical region (principal) ==

== ENCOUNTER → 2022-08-07 | Outpatient (CLI) | payer BC | LOC: M PLAIMG 14:04 | PROVIDERS: ATTEND Family Medicine | DX: R51.9 Headache, unspecified (principal) ==

== ENCOUNTER → 2022-08-20 | Outpatient (CLI) | payer BC ==
[2022-08-20 11:02] LABS: BASO # 0.1 10^3/uL (0.0-0.2); BASO % 0.7 % (0.0-1.0); EOS # 0.4 10^3/uL (0.0-0.5); EOS % 4.5 % (0.0-3.0); HEMATOCRIT 42.6 % (36.0-47.0); HEMOGLOBIN 13.9 g/dl (12.0-15.5); LYMPH # 1.8 10^3/uL (1.5-5.0); LYMPH % 21.5 % (24.0-44.0); MEAN CORPUSCULAR HEMOGLOBIN 31.3 pg (27.0-33.0); MEAN CORPUSCULAR HGB CONC 32.6 g/dl (32.0-36.5); MEAN CORPUSCULAR VOLUME 95.9 fl (80.0-96.0); MONO # 0.7 10^3/uL (0.0-0.8); MONO % 7.7 % (2.0-8.0); NEUTROPHILS # 5.5 10^3/uL (1.5-8.5); NEUTROPHILS % 65.2 % (36.0-66.0); PLATELET COUNT, AUTOMATED 240 10^3/uL (150-450); RED BLOOD COUNT 4.44 10^6/uL (4.00-5.40); WHITE BLOOD COUNT 8.4 10^3/uL (4.0-10.0)
[2022-08-20 11:35] LABS: MAGNESIUM LEVEL 1.7 MG/DL (1.8-2.4)
[2022-08-20 11:37] LABS: ALBUMIN 4.2 G/DL (3.2-5.2); ALKALINE PHOSPHATASE 66 U/L (46-116); ALT/SGPT 70 U/L (7.0-40); AST/SGOT 48 U/L (<34); BILIRUBIN,TOTAL 0.6 MG/DL (0.3-1.2); BLOOD UREA NITROGEN 21 MG/DL (9-23); CARBON DIOXIDE LEVEL 29 MMOL/L (20-31); CHLORIDE LEVEL 106 MMOL/L (98-107); CREATININE FOR GFR 0.75 MG/DL (0.55-1.30); GLOMERULAR FILTRATION RATE > 60.0 (>39); GLUCOSE, FASTING 145 MG/DL (74-106); POTASSIUM SERUM 5.2 MMOL/L (3.5-5.1); PTH INTACT 19.1 PG/ML (18.5-88.0); SODIUM LEVEL 139 MMOL/L (136-145); TOTAL PROTEIN 6.9 G/DL (5.7-8.2)
[2022-08-20 11:38] LABS: FERRITIN 308.7 NG/ML (7.3-270.7); TOTAL 25(OH) VITAMIN D 50.1 NG/ML (20.0-100.0)
== END ==
LOC: M PLALAB 08:30
PROVIDERS: ATTEND Family Medicine
DX: E55.9 Vitamin D deficiency, unspecified (principal)

== ENCOUNTER → 2022-12-17 | Outpatient (CLI) | payer BC ==
[~2022-12-17] MED LIST changes: +ENAL1TAB52 PO; -ENAL20TA11 PO
== END ==
LOC: M WHC 13:15
PROVIDERS: ATTEND Family Medicine
DX: Z12.31 Encounter for screening mammogram for malignant neoplasm of breast (principal)

== ENCOUNTER → 2023-02-25 | Outpatient (CLI) | payer BC ==
[~2023-02-25] MED LIST changes: +DICL100G10 TOP; -DICL1GEL3 TOP
[2023-02-25 15:05] LABS: BASO # 0.1 10^3/uL (0.0-0.2); BASO % 0.7 % (0.0-1.0); EOS # 0.3 10^3/uL (0.0-0.5); HEMATOCRIT 42.6 % (36.0-47.0); HEMOGLOBIN 14.2 g/dl (12.0-15.5); LYMPH % 21.7 % (24.0-44.0); MEAN CORPUSCULAR HEMOGLOBIN 31.3 pg (27.0-33.0); MEAN CORPUSCULAR HGB CONC 33.3 g/dl (32.0-36.5); MONO # 0.6 10^3/uL (0.0-0.8); MONO % 6.8 % (2.0-8.0); NEUTROPHILS # 6.1 10^3/uL (1.5-8.5); NEUTROPHILS % 67.4 % (36.0-66.0); PLATELET COUNT, AUTOMATED 231 10^3/uL (150-450); RED BLOOD COUNT 4.53 10^6/uL (4.00-5.40); WHITE BLOOD COUNT 9.1 10^3/uL (4.0-10.0)
[2023-02-25 15:29] LABS: HEMOGLOBIN A1c 6.7 % (4.0-6.0)
[2023-02-25 15:32] LABS: ALBUMIN 4.3 G/DL (3.2-5.2); ALKALINE PHOSPHATASE 67 U/L (46-116); ALT/SGPT 42 U/L (7.0-40); AST/SGOT 23 U/L (<34); BILIRUBIN,TOTAL 0.4 MG/DL (0.3-1.2); BLOOD UREA NITROGEN 16 MG/DL (9-23); CALCIUM LEVEL 9.5 MG/DL (8.3-10.6); CARBON DIOXIDE LEVEL 28 MMOL/L (20-31); CHLORIDE LEVEL 105 MMOL/L (98-107); CREATININE FOR GFR 0.58 MG/DL (0.55-1.30); GLOMERULAR FILTRATION RATE > 60.0 (>39); GLUCOSE, FASTING 165 MG/DL (74-106); POTASSIUM SERUM 4.9 MMOL/L (3.5-5.1); SODIUM LEVEL 141 MMOL/L (136-145); TOTAL PROTEIN 6.8 G/DL (5.7-8.2)
[2023-02-25 15:33] LABS: PTH INTACT 39.2 PG/ML (18.5-88.0)
== END ==
LOC: M PLALAB 09:13
PROVIDERS: ATTEND Family Medicine
DX: E11.9 Type 2 diabetes mellitus without complications (principal); D75.89 Other specified diseases of blood and blood-forming organs; I10 Essential (primary) hypertension

== ENCOUNTER → 2023-03-02 | Outpatient (REF) | payer BC | LOC: M SFHCPLAZ 18:19 | PROVIDERS: ATTEND Family Medicine | DX: Z53.9 Procedure and treatment not carried out, unspecified reason (principal) ==